=== PATIENT | female | born 1935 | race Caucasian/White ===

== ENCOUNTER 2018-04-21 15:25 | Inpatient (IN) | payer MEDICARE, BC ==
[2018-04-21] MEDS ORDERED: Sodium Chloride 0.9% 1,000 ML IV SCH (15:45)
--- NOTE | 2018-04-21 16:28 | EDM.PDOC ---
ED HPI GENERAL MEDICAL PROBLEM - General Chief Complaint: Cardiovascular Problem Stated Complaint: RAPID HEART BEAT Time Seen by Provider: 04/21/18 16:23 Source of Information: Reports: Patient History Limitations: Reports: No Limitations - History of Present Illness INITIAL COMMENTS - FREE TEXT/NARRATIVE: pt arrived with a history of frequent episodes of rapid rhythm. She has a history of svt. She has had some of this for several days but today has been much worse. Onset: Gradual, Other ( She has had problems for several days. ) Duration: Hour(s): Location: Reports: Chest, Other (Pt is having some rapid rhythms and during that time she is feeling dizzy and like she could pass out. ) Associated Symptoms: Reports: Other ( dizziness. ) - Related Data Allergies Allergy/AdvReac Type Severity Reaction Status Date / Time citalopram [From Celexa] Allergy Cannot Verified 04/21/18 15:37 Remember simvastatin Allergy Cannot Verified 04/21/18 15:37 Remember Home Meds: Home Meds Calcium Carbonate/Vitamin D2 [Oyster Shell Calcium-Vit D Tab] 200 - 500 mg PO DAILY 12/09/15 [History] Metoprolol Succinate [Toprol XL] 25 mg PO BID 12/09/15 [History] Alendronate Sodium [Fosamax] 70 mg PO WEEKLY 12/07/17 [History] Anastrozole [Arimidex] 1 mg PO ASDIRECTED 12/07/17 [History] Aspirin 81 mg PO DAILY 12/07/17 [History] Simvastatin 5 mg PO BEDTIME 12/07/17 [History] Past Medical History HEENT History: Reports: Cataract, Hard of Hearing, Impaired Vision Cardiovascular History: Reports: Arrhythmia, High Cholesterol, Hypertension Other Cardiovascular History: MV prolapse Respiratory History: Reports: Asthma Gastrointestinal History: Reports: None Genitourinary History: Reports: UTI, Recurrent 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: Musculoskeletal History: Reports: Back Pain, Chronic, Osteoarthritis, Other ( See Below) Other Musculoskeletal History: 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) Psychiatric History: Reports: Anxiety Endocrine/Metabolic History: Reports: Osteopenia, Osteoporosis Hematologic History: Reports: Anemia, Blood Transfusion(s) Oncologic (Cancer) History: Reports: Breast - Infectious Disease History Infectious Disease History: Reports: Chicken Pox, Measles - Past Surgical History Head Surgeries/Procedures: Reports: None HEENT Surgical History: Reports: Cataract Surgery Cardiovascular Surgical History: Reports: None Respiratory Surgical History: Reports: None GI Surgical History: Reports: Appendectomy, Colonoscopy, EGD Female Surgical History: Reports: Mastectomy Other Female Surgeries/Procedures: left side mastectomy Endocrine Surgical History: Reports: None Musculoskeletal Surgical History: Reports: None Oncologic Surgical History: Reports: Biopsy of Breast, Mastectomy, Other (See Below) Other Oncologic Surgeries/Procedures: L mastectomy (~2016) Dermatological Surgical History: Reports: None Social & Family History - Tobacco Use Smoking Status *Q: Never Smoker Second Hand Smoke Exposure: No - Caffeine Use Caffeine Use: Reports: None - Recreational Drug Use Recreational Drug Use: No ED ROS GENERAL - Review of Systems Review Of Systems: See Below Constitutional: Reports: Other ( dizziness. ) HEENT: Reports: No Symptoms Respiratory: Reports: No Symptoms Cardiovascular: Reports: Palpitations, Other ( pt is having runs of very rapuid rhythm. ) GI/Abdominal: Reports: No Symptoms : Reports: No Symptoms Musculoskeletal: Reports: No Symptoms Skin: Reports: No Symptoms ED EXAM, GENERAL - Physical Exam Exam: See Below Free Text/Narrative:: Pt is having episodes of very rapid rhythm up to 1780. She has aregular rapid rhythm in PAT Exam Limited By: No Limitations General Appearance: Alert, Anxious, Other ( She is having episodeds of rapid rhythm. ) Ears: Normal TMs Nose: Normal Inspection Throat/Mouth: Normal Inspection Head: Atraumatic Neck: Normal Inspection Respiratory/Chest: No Respiratory Distress Cardiovascular: Other ( episode of rapid rhytm up to 170. his is a at. ) GI/Abdominal: Soft, Non-Tender Rectal (Female) Exam: Deferred Back Exam: Normal Inspection Extremities: Normal Inspection Neurological: Alert, Oriented, Normal Cognition Psychiatric: Anxious Course - Vital Signs Last Recorded V/S: Last Vital Signs Temp 36.1 C 04/21/18 15:38 Pulse 150 H 04/21/18 17:36 Resp 14 04/21/18 17:36 BP 146/91 H 04/21/18 17:36 Pulse Ox 99 04/21/18 17:36 - Orders/Labs/Meds Orders: Active Orders 24 hr Category Date Time Status EKG Documentation Completion [RC] ASDIRECTED Care 04/21/18 15:38 Active Sodium Chloride 0.9% [Normal Saline] 1,000 ml Med 04/21/18 15:45 Active IV ASDIRECTED EKG 12 Lead [EK] Routine Ther 04/21/18 15:38 Ordered Medication Orders Sodium Chloride (Normal Saline) 1,000 mls @ 500 mls/hr IV ASDIRECTED CAROL Last Admin: 04/21/18 15:53 Dose: 500 mls/hr Labs: Laboratory Tests 04/21/18 04/21/18 04/21/18 Range/Units 15:38 15:51 15:51 WBC 8.0 (4.5-11.0) K/uL RBC 4.80 (3.30-5.50) M/uL Hgb 15.1 H (12.0-15.0) g/dL Hct 44.0 (36.0-48.0) % MCV 92 (80-98) fL MCH 32 H (27-31) pg MCHC 34 (32-36) % Plt Count 253 (150-400) K/uL Neut % (Auto) 66 (36-66) % Lymph % (Auto) 19 L (24-44) % [place] % (Auto) 12 H (2-6) % Eos % (Auto) 2 (2-4) % Baso % (Auto) 0 (0-1) % Sodium 143 (140-148) mmol/L Potassium 3.9 (3.6-5.2) mmol/L Chloride 105 (100-108) mmol/L Carbon Dioxide 28 (21-32) mmol/L Anion Gap 9.9 (5.0-14.0) mmol/L BUN 14 (7-18) mg/dL Creatinine 0.9 (0.6-1.0) mg/dL Est Cr Clr Drug Dosing 41.62 mL/min Estimated GFR (MDRD) 60 (>60) Glucose 99 (74-106) mg/dL Calcium 9.2 (8.5-10.1) mg/dL Magnesium 2.0 (1.8-2.4) mg/dL Total Bilirubin 0.3 (0.2-1.0) mg/dL AST 17 (15-37) U/L ALT 21 (12-78) U/L Alkaline Phosphatase 58 (46-116) U/L Troponin I < 0.017 (0.000-0.056) ng/mL Total Protein 7.1 (6.4-8.2) g/dL Albumin 3.6 (3.4-5.0) g/dL Globulin 3.5 (2.3-3.5) g/dL Albumin/Globulin Ratio 1.0 L (1.2-2.2) TSH, Ultra Sensitive (0.358-3.740) uIU/mL Urine Color Urine Appearance Urine pH (4.5-8.0) Ur Specific [place] (1.008-1.030) Urine Protein (NEGATIVE) mg/dL Urine Glucose (UA) (NEGATIVE) mg/dL Urine Ketones (NEGATIVE) mg/dL Urine Occult Blood (NEGATIVE) Urine Nitrite (NEGATIVE) Urine Bilirubin (NEGATIVE) Urine Urobilinogen (NORMAL) mg/dL Ur Leukocyte Esterase (NEGATIVE) Urine RBC (0-5) Urine WBC (0-5) Ur Epithelial Cells Amorphous Sediment Urine Bacteria Urine Mucus 04/21/18 04/21/18 Range/Units 16:30 16:33 WBC (4.5-11.0) K/uL RBC (3.30-5.50) M/uL Hgb (12.0-15.0) g/dL Hct (36.0-48.0) % MCV (80-98) fL MCH (27-31) pg MCHC (32-36) % Plt Count (150-400) K/uL Neut % (Auto) (36-66) % Lymph % (Auto) (24-44) % [place] % (Auto) (2-6) % Eos % (Auto) (2-4) % Baso % (Auto) (0-1) % Sodium (140-148) mmol/L Potassium (3.6-5.2) mmol/L Chloride (100-108) mmol/L Carbon Dioxide (21-32) mmol/L Anion Gap (5.0-14.0) mmol/L BUN (7-18) mg/dL Creatinine (0.6-1.0) mg/dL Est Cr Clr Drug Dosing mL/min Estimated GFR (MDRD) (>60) Glucose (74-106) mg/dL Calcium (8.5-10.1) mg/dL Magnesium (1.8-2.4) mg/dL Total Bilirubin (0.2-1.0) mg/dL AST (15-37) U/L ALT (12-78) U/L Alkaline Phosphatase (46-116) U/L Troponin I (0.000-0.056) ng/mL Total Protein (6.4-8.2) g/dL Albumin (3.4-5.0) g/dL Globulin (2.3-3.5) g/dL Albumin/Globulin Ratio (1.2-2.2) TSH, Ultra Sensitive 2.310 (0.358-3.740) uIU/mL Urine Color Yellow Urine Appearance Clear Urine pH 5.0 (4.5-8.0) Ur Specific [place] 1.020 (1.008-1.030) Urine Protein Negative (NEGATIVE) mg/dL Urine Glucose (UA) Normal (NEGATIVE) mg/dL Urine Ketones Negative (NEGATIVE) mg/dL Urine Occult Blood Negative (NEGATIVE) Urine Nitrite Negative (NEGATIVE) Urine Bilirubin Negative (NEGATIVE) Urine Urobilinogen Normal (NORMAL) mg/dL Ur Leukocyte Esterase Moderate (NEGATIVE) Urine RBC Not seen (0-5) Urine WBC 5-10 H (0-5) Ur Epithelial Cells Rare Amorphous Sediment Not seen Urine Bacteria Many Urine Mucus Not seen Meds: Medications Generic Name Dose Route Start Last Admin Trade Name Freq PRN Reason Stop Dose Admin Sodium Chloride 1,000 mls @ 500 mls/hr 04/21/18 15:45 04/21/18 15:53 Normal Saline IV 500 mls/hr ASDIRECTED CAROL Administration - Re-Assessments/Exams Free Text/Narrative Re-Assessment/Exam: 04/21/18 17:59 pt has normal electrolytes and cardiac enzymes Departure - Departure Time of Disposition: 18:00 Disposition: Admitted As Inpatient 66 Condition: Fair Clinical Impression: PAT (paroxysmal atrial tachycardia) - My Orders Last 24 Hours: My Active Orders 04/21/18 15:38 EKG Documentation Completion [RC] ASDIRECTED EKG 12 Lead [EK] Routine 04/21/18 15:45 Sodium Chloride 0.9% [Normal Saline] 1,000 ml IV ASDIRECTED - Assessment/Plan Last 24 Hours: My Active Orders 04/21/18 15:38 EKG Documentation Completion [RC] ASDIRECTED EKG 12 Lead [EK] Routine 04/21/18 15:45 Sodium Chloride 0.9% [Normal Saline] 1,000 ml IV ASDIRECTED
--- NOTE | 2018-04-21 16:29 | CRLCR ---
Clinical INDICATION: Rapid heart rhythm. FINDINGS: When allowing for AP technique, the heart is likely normal in size. The lungs are clear. The pulmonary vasculature and pleural surfaces are unremarkable. The bony thorax appears intact. IMPRESSION: No acute process identified. Dictated by Brandon Lake MD @ Apr 21 2018 4:27PM Signed by Dr. Brandon Lake @ Apr 21 2018 4:28PM
--- NOTE | 2018-04-21 18:02 | PCM.HP ---
H&P History of Present Illness - General Date of Service: 04/21/18 Admit Problem/Dx: Admission Diagnosis/Problem Admission Diagnosis/Problem Tachycardia Source of Information: Patient, Family, Old Records, Provider, RN Notes Reviewed History Limitations: Reports: No Limitations - History of Present Illness Initial Comments - Free Text/Narative: Ms. 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 She was first diagnosed with this in 2014, converted to sinus rhythm with Adenocard. She was seen and evaluated for an EP consult, she was treated with metoprolol 25 mg twice daily. That resulted in good control of the tachycardia over the past few years. Over the past few months she is noted recurrent episodes of rapid heart rate. Recently was seen and evaluated by Dr. Medrano, for cardiology consult. He was reluctant to increase the dose of metoprolol because of her sinus bradycardia with rate of 50. He recommended that if she have recurrent and increasing rhythm problems that ablation procedure be considered. Over the past week she has noted increased frequency of the episodes of atrial tachycardia and now over the past few days it has been very frequent. While in the emergency department it appears that she is been in the tachycardia is much as she is been out of it. She reports symptoms of lightheadedness and weakness but denies chest pain or significant shortness of breath. - Related Data Allergies/Adverse Reactions: Allergies Allergy/AdvReac Type Severity Reaction Status Date / Time citalopram [From Celexa] Allergy Cannot Verified 04/21/18 15:37 Remember simvastatin Allergy Cannot Verified 04/21/18 15:37 Remember Home Medications: Home Meds Calcium Carbonate/Vitamin D2 [Oyster Shell Calcium-Vit D Tab] 200 - 500 mg PO DAILY 12/09/15 [History] Metoprolol Succinate [Toprol XL] 25 mg PO BID 12/09/15 [History] Alendronate Sodium [Fosamax] 70 mg PO WEEKLY 12/07/17 [History] Anastrozole [Arimidex] 1 mg PO ASDIRECTED 12/07/17 [History] Aspirin 81 mg PO DAILY 12/07/17 [History] Simvastatin 5 mg PO BEDTIME 12/07/17 [History] Past Medical History HEENT History: Reports: Cataract, Hard of Hearing, Impaired Vision Cardiovascular History: Reports: Arrhythmia, High Cholesterol, Hypertension Other Cardiovascular History: MV prolapse Respiratory History: Reports: Asthma Gastrointestinal History: Reports: None Genitourinary History: Reports: UTI, Recurrent 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: Musculoskeletal History: Reports: Back Pain, Chronic, Osteoarthritis, Other ( See Below) Other Musculoskeletal History: 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) Psychiatric History: Reports: Anxiety Endocrine/Metabolic History: Reports: Osteopenia, Osteoporosis Hematologic History: Reports: Anemia, Blood Transfusion(s) Oncologic (Cancer) History: Reports: Breast - Infectious Disease History Infectious Disease History: Reports: Chicken Pox, Measles - Past Surgical History Head Surgeries/Procedures: Reports: None HEENT Surgical History: Reports: Cataract Surgery Cardiovascular Surgical History: Reports: None Respiratory Surgical History: Reports: None GI Surgical History: Reports: Appendectomy, Colonoscopy, EGD Female Surgical History: Reports: Mastectomy Other Female Surgeries/Procedures: left side mastectomy Endocrine Surgical History: Reports: None Musculoskeletal Surgical History: Reports: None Oncologic Surgical History: Reports: Biopsy of Breast, Mastectomy, Other (See Below) Other Oncologic Surgeries/Procedures: L mastectomy (~2015) Dermatological Surgical History: Reports: None Social & Family History - Tobacco Use Smoking Status *Q: Never Smoker Second Hand Smoke Exposure: No - Caffeine Use Caffeine Use: Reports: None - Recreational Drug Use Recreational Drug Use: No H&P Review of Systems - Review of Systems: Review Of Systems: See Below General: Reports: Weakness. Denies: Fever, Chills HEENT: Reports: No Symptoms Pulmonary: Reports: No Symptoms Cardiovascular: Reports: Palpitations, Lightheadedness. Denies: Chest Pain, Dyspnea on Exertion, Orthopnea, PND, Edema, Syncope Gastrointestinal: Reports: No Symptoms Genitourinary: Reports: No Symptoms Musculoskeletal: Reports: No Symptoms Skin: Reports: No Symptoms Psychiatric: Reports: No Symptoms Neurological: Reports: No Symptoms Hematologic/Lymphatic: Reports: No Symptoms Immunologic: Reports: No Symptoms Exam - Exam Exam: See Below - Vital Signs Vital Signs: Last Vital Signs Temp 97.0 F 04/21/18 15:38 Pulse 150 H 04/21/18 17:36 Resp 14 04/21/18 17:36 BP 146/91 H 04/21/18 17:36 Pulse Ox 99 04/21/18 17:36 Weight: 145 lb - Exam Quality Assessment: DVT Prophylaxis General: Alert, Oriented, Cooperative, Moderate Distress HEENT: Conjunctiva Clear, Hearing Intact, Mucosa Moist & [place], Normal Nasal Septum, Posterior Pharynx Clear, Pupils Equal Neck: Supple, Trachea Midline, +2 Carotid Pulse wo Bruit Lungs: Clear to Auscultation, Normal Respiratory Effort Cardiovascular: Regular Rhythm, Normal S1, Normal S2, Tachycardia. No: Systolic Murmur, Diastolic Murmur GI/Abdominal Exam: Soft, Non-Tender, No Organomegaly, No Distention Back Exam: Normal Inspection, Full Range of Motion Extremities: Non-Tender, No Pedal Edema Skin: Warm, Dry, Intact Neurological: Cranial Nerves Intact, Strength Equal Bilateral, Normal Speech, Normal Tone, Sensation Intact. No: Focal Deficit Neuro Extensive - Mental Status: Alert, Oriented x3, Normal Mood/Affect, Normal Cognition, Memory Intact - Patient Data Lab Results Last 24 hrs: Laboratory Results - last 24 hr 04/21/18 04/21/18 04/21/18 Range/Units 15:38 15:51 15:51 WBC 8.0 (4.5-11.0) K/uL RBC 4.80 (3.30-5.50) M/uL Hgb 15.1 H (12.0-15.0) g/dL Hct 44.0 (36.0-48.0) % MCV 92 (80-98) fL MCH 32 H (27-31) pg MCHC 34 (32-36) % Plt Count 253 (150-400) K/uL Neut % (Auto) 66 (36-66) % Lymph % (Auto) 19 L (24-44) % [place] % (Auto) 12 H (2-6) % Eos % (Auto) 2 (2-4) % Baso % (Auto) 0 (0-1) % Sodium 143 (140-148) mmol/L Potassium 3.9 (3.6-5.2) mmol/L Chloride 105 (100-108) mmol/L Carbon Dioxide 28 (21-32) mmol/L Anion Gap 9.9 (5.0-14.0) mmol/L BUN 14 (7-18) mg/dL Creatinine 0.9 (0.6-1.0) mg/dL Est Cr Clr Drug Dosing 41.62 mL/min Estimated GFR (MDRD) 60 (>60) Glucose 99 (74-106) mg/dL Calcium 9.2 (8.5-10.1) mg/dL Magnesium 2.0 (1.8-2.4) mg/dL Total Bilirubin 0.3 (0.2-1.0) mg/dL AST 17 (15-37) U/L ALT 21 (12-78) U/L Alkaline Phosphatase 58 (46-116) U/L Troponin I < 0.017 (0.000-0.056) ng/mL Total Protein 7.1 (6.4-8.2) g/dL Albumin 3.6 (3.4-5.0) g/dL Globulin 3.5 (2.3-3.5) g/dL Albumin/Globulin Ratio 1.0 L (1.2-2.2) TSH, Ultra Sensitive (0.358-3.740) uIU/mL Urine Color Urine Appearance Urine pH (4.5-8.0) Ur Specific [place] (1.008-1.030) Urine Protein (NEGATIVE) mg/dL Urine Glucose (UA) (NEGATIVE) mg/dL Urine Ketones (NEGATIVE) mg/dL Urine Occult Blood (NEGATIVE) Urine Nitrite (NEGATIVE) Urine Bilirubin (NEGATIVE) Urine Urobilinogen (NORMAL) mg/dL Ur Leukocyte Esterase (NEGATIVE) Urine RBC (0-5) Urine WBC (0-5) Ur Epithelial Cells Amorphous Sediment Urine Bacteria Urine Mucus 04/21/18 04/21/18 Range/Units 16:30 16:33 WBC (4.5-11.0) K/uL RBC (3.30-5.50) M/uL Hgb (12.0-15.0) g/dL Hct (36.0-48.0) % MCV (80-98) fL MCH (27-31) pg MCHC (32-36) % Plt Count (150-400) K/uL Neut % (Auto) (36-66) % Lymph % (Auto) (24-44) % [place] % (Auto) (2-6) % Eos % (Auto) (2-4) % Baso % (Auto) (0-1) % Sodium (140-148) mmol/L Potassium (3.6-5.2) mmol/L Chloride (100-108) mmol/L Carbon Dioxide (21-32) mmol/L Anion Gap (5.0-14.0) mmol/L BUN (7-18) mg/dL Creatinine (0.6-1.0) mg/dL Est Cr Clr Drug Dosing mL/min Estimated GFR (MDRD) (>60) Glucose (74-106) mg/dL Calcium (8.5-10.1) mg/dL Magnesium (1.8-2.4) mg/dL Total Bilirubin (0.2-1.0) mg/dL AST (15-37) U/L ALT (12-78) U/L Alkaline Phosphatase (46-116) U/L Troponin I (0.000-0.056) ng/mL Total Protein (6.4-8.2) g/dL Albumin (3.4-5.0) g/dL Globulin (2.3-3.5) g/dL Albumin/Globulin Ratio (1.2-2.2) TSH, Ultra Sensitive 2.310 (0.358-3.740) uIU/mL Urine Color Yellow Urine Appearance Clear Urine pH 5.0 (4.5-8.0) Ur Specific [place] 1.020 (1.008-1.030) Urine Protein Negative (NEGATIVE) mg/dL Urine Glucose (UA) Normal (NEGATIVE) mg/dL Urine Ketones Negative (NEGATIVE) mg/dL Urine Occult Blood Negative (NEGATIVE) Urine Nitrite Negative (NEGATIVE) Urine Bilirubin Negative (NEGATIVE) Urine Urobilinogen Normal (NORMAL) mg/dL Ur Leukocyte Esterase Moderate (NEGATIVE) Urine RBC Not seen (0-5) Urine WBC 5-10 H (0-5) Ur Epithelial Cells Rare Amorphous Sediment Not seen Urine Bacteria Many Urine Mucus Not seen Result Diagrams: 04/21/18 15:38 04/21/18 15:51 *Q Meaningful Use (ADM) - VTE Risk Assess *Q Each Risk Factor Represents 1 Point: None Total Score 1 Point Risk Factors: 0 Each Risk Factor Represents 2 Points: None Total Score 2 Point Risk Factors: 0 Each Risk Factor Represents 3 Points: Age 75 Years or Greater Total Score 3 Point Risk Factors: 3 Each Risk Factor Represents 5 Points: None Total Score 5 Point Risk Factors: 0 Venous Thromboembolism Risk Factor Score *Q: 3 Problem List Initiated/Reviewed/Updated: Yes Orders Last 24hrs: Active Orders 24 hr Category Date Time Status Patient Status Manage Transfer [TRANSFER] Routine ADT 04/21/18 17:45 Active EKG Documentation Completion [RC] ASDIRECTED Care 04/21/18 15:38 Active Sodium Chloride 0.9% [Normal Saline] 1,000 ml Med 04/21/18 15:45 Active IV ASDIRECTED Resuscitation Status Routine Resus Stat 04/21/18 17:47 Ordered EKG 12 Lead [EK] Routine Ther 04/21/18 15:38 Ordered Medication Orders Sodium Chloride (Normal Saline) 1,000 mls @ 500 mls/hr IV ASDIRECTED CAROL Last Admin: 04/21/18 15:53 Dose: 500 mls/hr Assessment/Plan Comment:: ASSESSMENT AND PLAN 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 On recent evaluation for cardiology there was reluctance to consider increased dose of beta syd because of her sinus bradycardia. Discussed with cardiology on-call from [facility], they've recommended trial of IV diltiazem and then transitioned to oral therapy. Rapid follow-up with EP to consider ablation procedure. -Hold metoprolol -Diltiazem 20 mg IV now -Continuous infusion of diltiazem 5 mg per hour -Transitioned to oral diltiazem in a.m. if it appears the rhythm is well controlled -Consider inpatient versus outpatient EP evaluation. HISTORY OF BREAST CANCER-no history of recurrence -Continue outpatient medical management MAINTENANCE ISSUES -DVT prophylaxis; Lovenox 40 mg subcutaneous daily -GI prophylaxis; not indicated -[place]es catheter; not indicated -Nutrition; regular diet -Nicotine dependence; not required CODE STATUS-FULL CODE ADMISSION STATUS-patient will be admitted to inpatient status, expect at least a 2 night hospital stay for evaluation and management of problems as outlined above. At the time of this admission I do not reasonably expected evaluation and management of this problem will require more than a 96 hour hospital stay. DISPOSITION-anticipate discharge to home after the hospital stay. PRIMARY CARE PROVIDER-Dr. Hines
[2018-04-21] MEDS ORDERED: Diltiazem 25 MG/5 ML SDV IVPUSH ONE (18:09)
[2018-04-21] MEDS ORDERED: Acetaminophen 325 MG Tab PO PRN (18:09)
[2018-04-21] MEDS ORDERED: Sodium Chloride 0.9% 10 ML Syringe FLUSH PRN (18:09)
[2018-04-21] MEDS ORDERED: Diltiazem 100 MG in Sodium Chloride 0.9% 100 ML IV SCH (18:09)
[2018-04-21] MEDS ORDERED: Ondansetron 4 MG/2 ML SDV IV PRN (18:09)
[2018-04-21] MEDS: Sodium Chloride 0.9% 1,000 ML IV SCH (19:00)
[2018-04-21] MEDS: Enoxaparin 40 MG/0.4 ML Syringe SUBCUT SCH (21:17)
[2018-04-21] MEDS: Aspirin 81 MG Tab.EC PO SCH (21:18)
[2018-04-21] MEDS: Anastrozole 1 MG Tab PO SCH (21:18)
[2018-04-22] MEDS: Sodium Chloride 0.9% 1,000 ML IV SCH (01:24)
[2018-04-22] MEDS ORDERED: Magnesium Hydroxide 400 MG/5 ML Susp 30 ML Cup PO PRN (08:49)
[2018-04-22] MEDS ORDERED: Aspirin 81 MG Tab.Chew PO SCH (09:00)
[2018-04-22] MEDS: Diltiazem IR 30 MG Tab PO SCH ×3 (09:12→21:17)
--- NOTE | 2018-04-22 09:19 | PCM.PN ---
- General Info Date of Service: 04/22/18 Subjective Update: There were no acute events overnight. With the use of diltiazem she has returned to a sinus rhythm. There have been no further episodes of SVT. She feels weak but otherwise feels a fair amount better than yesterday. Blood pressure has been on the low side of normal. There is no report of chest pain. Appetite was good this morning. She has not had any fevers. Functional Status: Reports: Pain Controlled, Tolerating Diet - Review of Systems General: Reports: Weakness Cardiovascular: Denies: Chest Pain - Patient Data Vitals - Most Recent: Last Vital Signs Temp 35.6 C 04/22/18 07:42 Pulse 50 L 04/22/18 07:42 Resp 16 04/22/18 07:42 BP 115/50 L 04/22/18 07:42 Pulse Ox 98 04/22/18 07:42 Weight - Most Recent: 65.771 kg I&O - Last 24 Hours: Intake & Output 04/21/18 04/22/18 04/22/18 22:59 06:59 14:59 Intake Total 840 240 Output Total 625 300 250 Balance 215 -300 -10 Lab Results Last 24 Hours: Laboratory Results - last 24 hr 04/21/18 04/21/18 04/21/18 Range/Units 15:38 15:51 15:51 WBC 8.0 (4.5-11.0) K/uL RBC 4.80 (3.30-5.50) M/uL Hgb 15.1 H (12.0-15.0) g/dL Hct 44.0 (36.0-48.0) % MCV 92 (80-98) fL MCH 32 H (27-31) pg MCHC 34 (32-36) % Plt Count 253 (150-400) K/uL Neut % (Auto) 66 (36-66) % Lymph % (Auto) 19 L (24-44) % [place] % (Auto) 12 H (2-6) % Eos % (Auto) 2 (2-4) % Baso % (Auto) 0 (0-1) % Sodium 143 (140-148) mmol/L Potassium 3.9 (3.6-5.2) mmol/L Chloride 105 (100-108) mmol/L Carbon Dioxide 28 (21-32) mmol/L Anion Gap 9.9 (5.0-14.0) mmol/L BUN 14 (7-18) mg/dL Creatinine 0.9 (0.6-1.0) mg/dL Est Cr Clr Drug Dosing 41.62 mL/min Estimated GFR (MDRD) 60 (>60) Glucose 99 (74-106) mg/dL Calcium 9.2 (8.5-10.1) mg/dL Magnesium 2.0 (1.8-2.4) mg/dL Total Bilirubin 0.3 (0.2-1.0) mg/dL AST 17 (15-37) U/L ALT 21 (12-78) U/L Alkaline Phosphatase 58 (46-116) U/L Troponin I < 0.017 (0.000-0.056) ng/mL Total Protein 7.1 (6.4-8.2) g/dL Albumin 3.6 (3.4-5.0) g/dL Globulin 3.5 (2.3-3.5) g/dL Albumin/Globulin Ratio 1.0 L (1.2-2.2) TSH, Ultra Sensitive (0.358-3.740) uIU/mL Urine Color Urine Appearance Urine pH (4.5-8.0) Ur Specific [place] (1.008-1.030) Urine Protein (NEGATIVE) mg/dL Urine Glucose (UA) (NEGATIVE) mg/dL Urine Ketones (NEGATIVE) mg/dL Urine Occult Blood (NEGATIVE) Urine Nitrite (NEGATIVE) Urine Bilirubin (NEGATIVE) Urine Urobilinogen (NORMAL) mg/dL Ur Leukocyte Esterase (NEGATIVE) Urine RBC (0-5) Urine WBC (0-5) Ur Epithelial Cells Amorphous Sediment Urine Bacteria Urine Mucus 04/21/18 04/21/18 04/22/18 Range/Units 16:30 16:33 04:37 WBC 6.4 (4.5-11.0) K/uL RBC 3.92 (3.30-5.50) M/uL Hgb 12.2 D (12.0-15.0) g/dL Hct 36.6 (36.0-48.0) % MCV 93 (80-98) fL MCH 31 (27-31) pg MCHC 33 (32-36) % Plt Count 199 (150-400) K/uL Neut % (Auto) 67 H (36-66) % Lymph % (Auto) 21 L (24-44) % [place] % (Auto) 11 H (2-6) % Eos % (Auto) 1 L (2-4) % Baso % (Auto) 0 (0-1) % Sodium (140-148) mmol/L Potassium (3.6-5.2) mmol/L Chloride (100-108) mmol/L Carbon Dioxide (21-32) mmol/L Anion Gap (5.0-14.0) mmol/L BUN (7-18) mg/dL Creatinine (0.6-1.0) mg/dL Est Cr Clr Drug Dosing mL/min Estimated GFR (MDRD) (>60) Glucose (74-106) mg/dL Calcium (8.5-10.1) mg/dL Magnesium (1.8-2.4) mg/dL Total Bilirubin (0.2-1.0) mg/dL AST (15-37) U/L ALT (12-78) U/L Alkaline Phosphatase (46-116) U/L Troponin I (0.000-0.056) ng/mL Total Protein (6.4-8.2) g/dL Albumin (3.4-5.0) g/dL Globulin (2.3-3.5) g/dL Albumin/Globulin Ratio (1.2-2.2) TSH, Ultra Sensitive 2.310 (0.358-3.740) uIU/mL Urine Color Yellow Urine Appearance Clear Urine pH 5.0 (4.5-8.0) Ur Specific [place] 1.020 (1.008-1.030) Urine Protein Negative (NEGATIVE) mg/dL Urine Glucose (UA) Normal (NEGATIVE) mg/dL Urine Ketones Negative (NEGATIVE) mg/dL Urine Occult Blood Negative (NEGATIVE) Urine Nitrite Negative (NEGATIVE) Urine Bilirubin Negative (NEGATIVE) Urine Urobilinogen Normal (NORMAL) mg/dL Ur Leukocyte Esterase Moderate (NEGATIVE) Urine RBC Not seen (0-5) Urine WBC 5-10 H (0-5) Ur Epithelial Cells Rare Amorphous Sediment Not seen Urine Bacteria Many Urine Mucus Not seen 04/22/18 Range/Units 04:37 WBC (4.5-11.0) K/uL RBC (3.30-5.50) M/uL Hgb (12.0-15.0) g/dL Hct (36.0-48.0) % MCV (80-98) fL MCH (27-31) pg MCHC (32-36) % Plt Count (150-400) K/uL Neut % (Auto) (36-66) % Lymph % (Auto) (24-44) % [place] % (Auto) (2-6) % Eos % (Auto) (2-4) % Baso % (Auto) (0-1) % Sodium 146 (140-148) mmol/L Potassium 4.0 (3.6-5.2) mmol/L Chloride 111 H (100-108) mmol/L Carbon Dioxide 27 (21-32) mmol/L Anion Gap 12.0 (5.0-14.0) mmol/L BUN 12 (7-18) mg/dL Creatinine 0.7 (0.6-1.0) mg/dL Est Cr Clr Drug Dosing 53.51 mL/min Estimated GFR (MDRD) > 60 (>60) Glucose 95 (74-106) mg/dL Calcium 8.0 L (8.5-10.1) mg/dL Magnesium 1.7 L (1.8-2.4) mg/dL Total Bilirubin (0.2-1.0) mg/dL AST (15-37) U/L ALT (12-78) U/L Alkaline Phosphatase (46-116) U/L Troponin I (0.000-0.056) ng/mL Total Protein (6.4-8.2) g/dL Albumin (3.4-5.0) g/dL Globulin (2.3-3.5) g/dL Albumin/Globulin Ratio (1.2-2.2) TSH, Ultra Sensitive (0.358-3.740) uIU/mL Urine Color Urine Appearance Urine pH (4.5-8.0) Ur Specific [place] (1.008-1.030) Urine Protein (NEGATIVE) mg/dL Urine Glucose (UA) (NEGATIVE) mg/dL Urine Ketones (NEGATIVE) mg/dL Urine Occult Blood (NEGATIVE) Urine Nitrite (NEGATIVE) Urine Bilirubin (NEGATIVE) Urine Urobilinogen (NORMAL) mg/dL Ur Leukocyte Esterase (NEGATIVE) Urine RBC (0-5) Urine WBC (0-5) Ur Epithelial Cells Amorphous Sediment Urine Bacteria Urine Mucus Med Orders - Current: Current Medications Acetaminophen (Tylenol) 650 mg PO Q4H PRN PRN Reason: Pain (Mild 1-3)/fever Anastrozole (Arimidex) 1 mg PO BEDTIME [facility] Last Admin: 04/21/18 21:18 Dose: 1 mg Aspirin (Halfprin) 81 mg PO BEDTIME [facility] Last Admin: 04/21/18 21:18 Dose: 81 mg Diltiazem HCl (Cardizem) 15 mg PO Q6H [facility] Last Admin: 04/22/18 09:12 Dose: 15 mg Enoxaparin Sodium (Lovenox) 40 mg SUBCUT BEDTIME [facility] Last Admin: 04/21/18 21:17 Dose: 40 mg Sodium Chloride (Normal Saline) 1,000 mls @ 125 mls/hr IV ASDIRECTED [facility] Last Admin: 04/22/18 01:24 Dose: 125 mls/hr Magnesium Hydroxide (Milk Of Magnesia) 30 ml PO DAILY PRN PRN Reason: Constipation Ondansetron HCl (Zofran) 4 mg IV Q4H PRN PRN Reason: Nausea/Vomiting Senna/Docusate Sodium (Senna Plus) 1 tab PO BID PRN PRN Reason: Constipation Sodium Chloride (Saline Flush) 10 ml FLUSH ASDIRECTED PRN PRN Reason: Keep Vein Open Discontinued Medications Aspirin (Aspirin) 81 mg PO DAILY [facility] Diltiazem HCl (Diltiazem) 20 mg IVPUSH ONETIME ONE Stop: 04/21/18 18:10 Last Admin: 04/21/18 18:35 Dose: 20 mg Sodium Chloride (Normal Saline) 1,000 mls @ 500 mls/hr IV ASDIRECTED [facility] Last Admin: 04/21/18 15:53 Dose: 500 mls/hr Diltiazem HCl 100 mg/ Sodium (Chloride) 100 mls @ 5 mls/hr IV TITRATE [facility]; Protocol Last Titration: 04/22/18 04:12 Dose: 0 mg/hr, 0 mls/hr - Exam Quality Assessment: No: Supplemental Oxygen General: Alert, Oriented, Cooperative, No Acute Distress Lungs: Clear to Auscultation, Normal Respiratory Effort Cardiovascular: Regular Rate, Regular Rhythm GI/Abdominal Exam: Soft, No Distention Extremities: No Pedal Edema. 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 She has responded well to diltiazem. I'm planning to transition her to oral medications this morning. Low doses of diltiazem are needed because of borderline low blood pressures. -Hold metoprolol -Diltiazem 15 mg by mouth every 6 hours -Consider inpatient versus outpatient EP evaluation if there is recurrence HISTORY OF BREAST CANCER - no history of recurrence -Continue outpatient medical management MAINTENANCE ISSUES -DVT prophylaxis; Lovenox 40 mg subcutaneous daily -GI prophylaxis; not indicated -Coles catheter; not indicated -Nutrition; regular diet -Nicotine dependence; not required CODE STATUS-FULL CODE ADMISSION STATUS-patient will be admitted to inpatient status, expect at least a 2 night hospital stay for evaluation and management of problems as outlined above. At the time of this admission I do not reasonably expected evaluation and management of this problem will require more than a 96 hour hospital stay. DISPOSITION - anticipate discharge to home after the hospital stay. Lee Go M.D.
[2018-04-22] MEDS ORDERED: Diltiazem IR 30 MG Tab PO ONE (17:49)
[2018-04-22] MEDS: Anastrozole 1 MG Tab PO SCH (21:17)
[2018-04-22] MEDS: Aspirin 81 MG Tab.EC PO SCH (21:17)
[2018-04-22] MEDS: Enoxaparin 40 MG/0.4 ML Syringe SUBCUT SCH (21:17)
[2018-04-23] MEDS: Diltiazem IR 30 MG Tab PO SCH ×2 (04:32→10:08)
[2018-04-23] MEDS ORDERED: cefTRIAXone 1 GM in Sodium Chloride 0.9% 50 ML IV SCH (09:00)
[2018-04-23 10:59] VITALS: BP 137/56
[2018-04-23] MEDS ORDERED: Diltiazem 120 MG Cap.CD PO ONE (12:20)
--- NOTE | 2018-04-23 12:24 | PCM.DCSUM1 ---
Discharge Summary - Hospital Course Brief History: 82-year-old female with history of breast cancer and AV nette reentrant tachycardia who presented with multiple episodes of palpitations. She was found to be in AV ntete branch and tachycardia with rapid cycling into and out of the rhythm. She was started on diltiazem and admitted to the intensive care unit. Diagnosis: Stroke: No - Discharge Data Discharge Date: 04/23/18 Discharge Disposition: Home, Self-Care 01 Condition: Good - Discharge Diagnosis/Problem(s) (1) AVNRT (AV nette re-entry tachycardia) SNOMED Code(s): 336212085, [id number], [id number] ICD Code: I47.1 - SUPRAVENTRICULAR TACHYCARDIA Status: Acute Current Visit: No (2) HX: breast cancer SNOMED Code(s): 858172818 ICD Code: Z85.3 - PERSONAL HISTORY OF MALIGNANT NEOPLASM OF BREAST Status: Chronic Current Visit: No - Patient Summary/Data Hospital Course: Anita presented to the emergency room with weakness, lightheadedness and palpitations. The symptoms have been progressive over several months but much worse in the few days leading up to presentation. In the emergency room she was noted to have recurrent episodes of SVT with a presumed reentrant tachycardia. These would self terminate but came out fairly frequently. Cardiology was consulted from the emergency room and they recommended trying diltiazem since she had previously been on metoprolol and was having breakthrough episodes. There was no evidence for electrolyte abnormality at the time of presentation. Urinalysis had many bacteria but she did not have symptoms or fever. She was admitted to the intensive care unit and started on a diltiazem infusion. After initiation of the infusion her heart rate stabilized and remained stable in the 50-60 range for a rate. Symptomatically she felt much better by the morning after admission. This point we elected to transition her to oral medications. Initially I tried 15 mg of diltiazem every 6 hours but this was insufficient to keep her palpitations down though she did not have recurrent SVT. I increase the dose to 30 mg every 6 hours which she tolerated well and alleviated her symptoms. Since the increase she had not had any difficulties with palpitations or SVT. On the morning of discharge she was transitioned to a long-acting diltiazem. Her urine culture did grow a gram-negative eliza and large quantity though identification is still pending and infection may be contributing as well. She has been very stable with the diltiazem and I don't feel these need for an urgent electrophysiology referral. With her recurrent symptoms and progressive difficulties over the past month she would benefit from repeat evaluation by the tree and shrub worker and consideration for ablation of her AV nette reentrant tachycardia. She feels well at this time and feel safe going home. She did receive a prescription for long-acting diltiazem. She also received a prescription for cephalexin to treat her urinary tract infection. I did complete a referral to [facility] in [place] so she can be set up an appointment to see the tree and shrub worker. She has previously seen Dr. Oropeza and had also recently been seen by Dr. Medrano who did recommend ablation if she had recurrent episodes. Her heart rate has been in the 50-60 range for the most part and does increase to the 80s with activity. She is not dizzy or lightheaded with a heart rate in the 50s or 60s. - Patient Instructions Diet: Heart Healthy Diet Activity: As Tolerated Showering/Bathing: May Shower Notify Provider of: Fever, Increased Pain Other/Special Instructions: 1. You were in the hospital for management of recurrent AV nette reentrant tachycardia. Your heart rate has improved and the abnormal rhythm appears to have resolved with the use of diltiazem. You should start taking diltiazem 120 mg once daily in the morning with your first dose due tomorrow. This is an extended release capsule. This will take the place of your metoprolol which you should stop taking. 2. During the hospital stay we noticed that your urine sample I suggested infection.I have sent a prescription for cephalexin (Keflex) 500 mg which you should take twice daily starting tomorrow morning. I will contact you if the urine culture grows a resistant organism and we need to change antibiotics. 3. I have placed a referral to electrophysiology at [facility] in [place]. They will be contacting you with an appointment in the near future. 4. Follow up with Dr. Hines in 1 to 2 weeks. 5. Seek medical attention if you have fever greater than 101 or if you experience symptoms of palpitations or chest tightness that raise concern for recurrence of the arrhythmia. - Discharge Plan *PRESCRIPTION DRUG MONITORING PROGRAM REVIEWED*: Not Applicable *COPY OF PRESCRIPTION DRUG MONITORING REPORT IN PATIENT KRISTY: Not Applicable Prescriptions/Med Rec: cephALEXin [Cephalexin] 500 mg PO BID #8 capsule dilTIAZem HCl [Diltiazem 24Hr Cd] 120 mg PO DAILY #30 cap.er.24h Home Medications: Home Meds Calcium Carbonate/Vitamin D2 [Oyster Shell Calcium-Vit D Tab] 200 - 500 mg PO DAILY 12/09/15 [History] Alendronate Sodium [Fosamax] 70 mg PO WEEKLY 12/07/17 [History] Anastrozole [Arimidex] 1 mg PO BEDTIME 12/07/17 [History] Aspirin 81 mg PO BEDTIME 12/07/17 [History] Simvastatin 5 mg PO BEDTIME 12/07/17 [History] cephALEXin [Cephalexin] 500 mg PO BID #8 capsule 04/23/18 [Rx] dilTIAZem HCl [Diltiazem 24Hr Cd] 120 mg PO DAILY #30 cap.er.24h 04/23/18 [Rx] Oxygen Therapy Mode: Room Air Patient Handouts: Diltiazem extended-release capsules or tablets, Cardiac Ablation Referrals: Boom Hines MD [Primary Care Provider] - (1-2 weeks - f/u hospital stay for AVNRT) - Discharge Summary/Plan Comment DC Time >30 min.: Yes (45 - setting up follow-up with electrophysiology) - Patient Data Vitals - Most Recent: Last Vital Signs Temp 36.9 C 04/23/18 10:57 Pulse 62 04/23/18 10:57 Resp 16 04/23/18 10:57 BP 137/56 L 04/23/18 10:57 Pulse Ox 100 04/23/18 10:57 Weight - Most Recent: 65.771 kg I&O - Last 24 hours: Intake & Output 04/22/18 04/23/18 04/23/18 22:59 06:59 14:59 Intake Total 240 600 410 Output Total 1200 1300 1000 Balance -960 -700 -590 Lab Results - Last 24 hrs: Laboratory Results - last 24 hr 04/22/18 04/23/18 Range/Units 13:04 05:55 Sodium 144 (140-148) mmol/L Potassium 4.7 (3.6-5.2) mmol/L Chloride 108 (100-108) mmol/L Carbon Dioxide 30 (21-32) mmol/L Anion Gap 5.9 (5.0-14.0) mmol/L BUN 7 (7-18) mg/dL Creatinine 0.7 (0.6-1.0) mg/dL Est Cr Clr Drug Dosing 53.51 mL/min Estimated GFR (MDRD) > 60 (>60) Glucose 111 H (74-106) mg/dL Calcium 8.7 (8.5-10.1) mg/dL Urine Color Yellow Urine Appearance Slightly cloudy Urine pH 5.0 (4.5-8.0) Ur Specific [place] 1.005 L (1.008-1.030) Urine Protein Negative (NEGATIVE) mg/dL Urine Glucose (UA) Normal (NEGATIVE) mg/dL Urine Ketones Negative (NEGATIVE) mg/dL Urine Occult Blood Negative (NEGATIVE) Urine Nitrite Negative (NEGATIVE) Urine Bilirubin Negative (NEGATIVE) Urine Urobilinogen Normal (NORMAL) mg/dL Ur Leukocyte Esterase Negative (NEGATIVE) Urine RBC Not seen (0-5) Urine WBC 0-5 (0-5) Ur Epithelial Cells Not seen Amorphous Sediment Not seen Urine Bacteria Many Urine Mucus Not seen LURDES Results - Last 24 hrs: Microbiology 04/22/18 10:26 Urine Culture - Preliminary Urine, Clean Catch Med Orders - Current: Current Medications Acetaminophen (Tylenol) 650 mg PO Q4H PRN PRN Reason: Pain (Mild 1-3)/fever Anastrozole (Arimidex) 1 mg PO BEDTIME [facility] Last Admin: 04/22/18 21:17 Dose: 1 mg Aspirin (Halfprin) 81 mg PO BEDTIME [facility] Last Admin: 04/22/18 21:17 Dose: 81 mg Enoxaparin Sodium (Lovenox) 40 mg SUBCUT BEDTIME [facility] Last Admin: 04/22/18 21:17 Dose: 40 mg Ceftriaxone Sodium 1 gm/ (Sodium Chloride) 50 mls @ 100 mls/hr IV Q24H [facility] Last Admin: 04/23/18 10:04 Dose: 100 mls/hr Magnesium Hydroxide (Milk Of Magnesia) 30 ml PO DAILY PRN PRN Reason: Constipation Last Admin: 04/22/18 09:46 Dose: 30 ml Ondansetron HCl (Zofran) 4 mg IV Q4H PRN PRN Reason: Nausea/Vomiting Senna/Docusate Sodium (Senna Plus) 1 tab PO BID PRN PRN Reason: Constipation Sodium Chloride (Saline Flush) 10 ml FLUSH ASDIRECTED PRN PRN Reason: Keep Vein Open Discontinued Medications Aspirin (Aspirin) 81 mg PO DAILY [facility] Diltiazem HCl (Diltiazem) 20 mg IVPUSH ONETIME ONE Stop: 04/21/18 18:10 Last Admin: 04/21/18 18:35 Dose: 20 mg Diltiazem HCl (Cardizem) 15 mg PO Q6H [facility] Last Admin: 04/22/18 16:10 Dose: 15 mg Diltiazem HCl (Cardizem) 15 mg PO ONETIME ONE Stop: 04/22/18 17:50 Last Admin: 04/22/18 18:12 Dose: 15 mg Diltiazem HCl (Cardizem) 30 mg PO Q6H [facility] Last Admin: 04/23/18 10:08 Dose: 30 mg Diltiazem HCl (Cardizem Cd) 120 mg PO ONETIME ONE Stop: 04/23/18 12:21 Sodium Chloride (Normal Saline) 1,000 mls @ 500 mls/hr IV ASDIRECTED [facility] Last Admin: 04/21/18 15:53 Dose: 500 mls/hr Diltiazem HCl 100 mg/ Sodium (Chloride) 100 mls @ 5 mls/hr IV TITRATE [facility]; Protocol Last Titration: 04/22/18 04:12 Dose: 0 mg/hr, 0 mls/hr Sodium Chloride (Normal Saline) 1,000 mls @ 125 mls/hr IV ASDIRECTED [facility] Last Admin: 04/22/18 01:24 Dose: 125 mls/hr - Exam Quality Assessment: Denies: Supplemental Oxygen General: Reports: Alert, Oriented, Cooperative, No Acute Distress Lungs: Reports: Normal Respiratory Effort Cardiovascular: Reports: Regular Rate, Regular Rhythm GI/Abdominal Exam: Soft, No Distention Extremities: No Pedal Edema Psy/Mental Status: Reports: Alert, Normal Affect
== END 2018-04-23 14:30 | disposition home or self-care (01) | DRG 309 ==
LOC: JP.ED 15:25 → JP.ICU 17:45 → JP.MS 04-22 10:30
PROVIDERS: ADMIT Hospitalist; ATTEND Internal Medicine
DX: I47.1 Supraventricular tachycardia (principal); N39.0 Urinary tract infection, site not specified; R53.1 Weakness; R42 Dizziness and giddiness; R00.0 Tachycardia, unspecified; I10 Essential (primary) hypertension; B96.20 Unspecified Escherichia coli [E. coli] as the cause of diseases classified elsewhere; Z85.3 Personal history of malignant neoplasm of breast; E78.00 Pure hypercholesterolemia, unspecified; H54.7 Unspecified visual loss; H91.90 Unspecified hearing loss, unspecified ear; Z87.440 Personal history of urinary (tract) infections; M81.0 Age-related osteoporosis without current pathological fracture; M19.90 Unspecified osteoarthritis, unspecified site; M54.9 Dorsalgia, unspecified; G89.29 Other chronic pain; F41.9 Anxiety disorder, unspecified; Z90.12 Acquired absence of left breast and nipple; Z79.82 Long term (current) use of aspirin; Z88.8 Allergy status to other drugs, medicaments and biological substances
CPT/HCPCS: 36415; 71045; 80053; 81001; 83735; 84443; 84484; 85025; 93005; 96360; 96361; 99285; J7030; 80048; 87086; 87088; 87186; A9270-GY; J0696; J1650; J3490; J7050

== ENCOUNTER 2018-04-28 16:30 | Emergency (ER) | payer MEDICARE, BC ==
--- NOTE | 2018-04-28 17:17 | EDM.PDOC ---
ED HPI GENERAL MEDICAL PROBLEM - General Chief Complaint: Cardiovascular Problem Stated Complaint: HEART ISSUES Time Seen by Provider: 04/28/18 17:05 Source of Information: Reports: Patient, Old Records, RN History Limitations: Reports: No Limitations - History of Present Illness INITIAL COMMENTS - FREE TEXT/NARRATIVE: 82 yo female returns with some irregular heart beats associated with light- headedness. No other sx's. 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 She did well in the hospital with once daily extended release diltiazem 120 mg daily. While she is still doing better on this med now that she did pre-hospitalization, she is not doing as well as she did while in the latter stages of her admission. Takes this medication in the mornings, this med is in capsule form. Onset: Today Onset Date: 04/28/18 Onset Time: 14:00 Duration: Hour(s):, Improving Location: Reports: Chest Quality: Reports: Other (no pain) Severity: Moderate Improves with: Reports: Other (unknown now, is overall better with Diltiazem. 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 ) - Related Data Allergies Allergy/AdvReac Type Severity Reaction Status Date / Time citalopram [From Celexa] Allergy Cannot Verified 04/28/18 16:53 Remember Home Meds: Home Meds Calcium Carbonate/Vitamin D2 [Oyster Shell Calcium-Vit D Tab] 200 - 500 mg PO DAILY 12/09/15 [History] Alendronate Sodium [Fosamax] 70 mg PO WEEKLY 12/07/17 [History] Anastrozole [Arimidex] 1 mg PO BEDTIME 12/07/17 [History] Aspirin 81 mg PO BEDTIME 12/07/17 [History] Simvastatin 5 mg PO BEDTIME 12/07/17 [History] dilTIAZem HCl [Diltiazem 24Hr Cd] 120 mg PO DAILY #30 cap.er.24h 04/23/18 [Rx] Diltiazem HCl [Cartia Xt] 180 mg PO DAILY #15 cap.er.24h 04/28/18 [Rx] Past Medical History HEENT History: Reports: Cataract, Hard of Hearing, Impaired Vision Cardiovascular History: Reports: Arrhythmia, High Cholesterol, Hypertension Other Cardiovascular History: MV prolapse. 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) Psychiatric History: Reports: Anxiety Endocrine/Metabolic History: Reports: Osteopenia, Osteoporosis Hematologic History: Reports: Anemia, Blood Transfusion(s) Oncologic (Cancer) History: Reports: Breast - Infectious Disease History Infectious Disease History: Reports: Chicken Pox, Measles - Past Surgical History Head Surgeries/Procedures: Reports: None HEENT Surgical History: Reports: Cataract Surgery GI Surgical History: Reports: Appendectomy, Colonoscopy, EGD Female Surgical History: Reports: Mastectomy Other Female Surgeries/Procedures: left side mastectomy Oncologic Surgical History: Reports: Biopsy of Breast, Mastectomy, Other (See Below) Other Oncologic Surgeries/Procedures: L mastectomy (~2015) Social & Family History - Tobacco Use Smoking Status *Q: Never Smoker - Caffeine Use Caffeine Use: Reports: None - Recreational Drug Use Recreational Drug Use: No ED ROS GENERAL - Review of Systems Review Of Systems: See Below Constitutional: Reports: No Symptoms HEENT: Reports: No Symptoms Respiratory: Reports: No Symptoms Cardiovascular: Reports: Lightheadedness (when have these palpitations only.), Palpitations Endocrine: Reports: No Symptoms GI/Abdominal: Reports: No Symptoms : Reports: No Symptoms Musculoskeletal: Reports: No Symptoms Skin: Reports: No Symptoms Neurological: Reports: No Symptoms Psychiatric: Reports: No Symptoms ED EXAM, GENERAL - Physical Exam Exam: See Below Exam Limited By: No Limitations General Appearance: Alert, WD/WN, No Apparent Distress Eye Exam: Bilateral Eye: Normal Inspection Ears: Normal External Exam, Normal Canal, Hearing Grossly Normal, Normal TMs Ear Exam: Bilateral Ear: Auricle Normal, Canal Normal, TM normal Nose: Normal Inspection, No Blood Throat/Mouth: Normal Inspection, Normal Lips, Normal Oropharynx, Normal Voice, No Airway Compromise Head: Atraumatic, Normocephalic Neck: Normal Inspection Respiratory/Chest: No Respiratory Distress, Lungs Clear, Normal Breath Sounds, No Accessory Muscle Use Cardiovascular: Regular Rate, Rhythm, No Edema GI/Abdominal: Normal Bowel Sounds, Soft, Non-Tender, No Distention Back Exam: Normal Inspection. 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 Discussed case with the home performance consultant medication aid at [facility]. Recommends increasing Diltiazem to 180 mg qd and then outpatient follow up with them. Last Recorded V/S: Last Vital Signs Temp 35.6 C 04/28/18 16:50 Pulse 75 04/28/18 16:50 Resp 13 04/28/18 16:50 BP 165/69 H 04/28/18 16:50 Pulse Ox 98 04/28/18 16:50 - Orders/Labs/Meds Orders: Active Orders 24 hr Category Date Time Status Cardiac Monitoring [RC] .As Directed Care 04/28/18 16:31 Active Sodium Chloride 0.9% [Saline Flush] Med 04/28/18 17:38 Active 10 ml FLUSH ASDIRECTED PRN Saline Lock Insert [OM.PC] Routine Oth 04/28/18 17:38 Ordered Medication Orders Sodium Chloride (Saline Flush) 10 ml FLUSH ASDIRECTED PRN PRN Reason: Keep Vein Open Labs: Laboratory Tests 04/28/18 Range/Units 17:18 Sodium 138 L (140-148) mmol/L Potassium 4.1 (3.6-5.2) mmol/L Chloride 102 (100-108) mmol/L Carbon Dioxide 29 (21-32) mmol/L Anion Gap 11.1 (5.0-14.0) mmol/L BUN 14 D (7-18) mg/dL Creatinine 0.9 (0.6-1.0) mg/dL Est Cr Clr Drug Dosing 41.62 mL/min Estimated GFR (MDRD) 60 (>60) Glucose 101 (74-106) mg/dL Calcium 9.0 (8.5-10.1) mg/dL Magnesium 2.1 (1.8-2.4) mg/dL Troponin I < 0.017 (0.000-0.056) ng/mL Meds: Medications Generic Name Dose Route Start Last Admin Trade Name Freq PRN Reason Stop Dose Admin Sodium Chloride 10 ml 04/28/18 17:38 Saline Flush FLUSH ASDIRECTED PRN Keep Vein Open Discontinued Medications Generic Name Dose Route Start Last Admin Trade Name Freq PRN Reason Stop Dose Admin Diltiazem HCl 30 mg 04/28/18 17:22 04/28/18 17:28 Cardizem PO 04/28/18 17:23 30 mg ONETIME ONE Administration Departure - Departure Time of Disposition: 17:58 Disposition: Home, Self-Care 01 Condition: Fair Clinical Impression: AV nette re-entry tachycardia Referrals: Boom Hines MD [Primary Care Provider] - Forms: ED Department Discharge Additional Instructions: Take diltiazem 30 mg immediate release tonight as you are getting into bed. Then when [facility] opens in the morning tomorrow start your Cartia XL 180 mg every 24 hrs. Follow up Monday with Dr. Hines. Follow up with Dr. Bill of [facility] adrian, call Monday for an appt. Return as needed. - My Orders Last 24 Hours: My Active Orders 04/28/18 16:31 Cardiac Monitoring [RC] .As Directed 04/28/18 17:38 Sodium Chloride 0.9% [Saline Flush] 10 ml FLUSH ASDIRECTED PRN Saline Lock Insert [OM.PC] Routine - Assessment/Plan Last 24 Hours: My Active Orders 04/28/18 16:31 Cardiac Monitoring [RC] .As Directed 04/28/18 17:38 Sodium Chloride 0.9% [Saline Flush] 10 ml FLUSH ASDIRECTED PRN Saline Lock Insert [OM.PC] Routine
[2018-04-28] MEDS ORDERED: Diltiazem IR 30 MG Tab PO ONE ×2 (17:22→17:48)
[2018-04-28] MEDS ORDERED: Sodium Chloride 0.9% 10 ML Syringe FLUSH PRN (17:38)
[2018-04-28 18:08] VITALS: BP 142/65
== END 2018-04-28 18:20 | disposition home or self-care (01) ==
LOC: JP.ED 16:30
DX: I47.1 Supraventricular tachycardia (principal); E78.00 Pure hypercholesterolemia, unspecified; I10 Essential (primary) hypertension; J45.909 Unspecified asthma, uncomplicated; F41.9 Anxiety disorder, unspecified; Z79.899 Other long term (current) drug therapy
CPT/HCPCS: 36415; 80048; 83735; 84484; 99284; A9270

== ENCOUNTER 2019-01-05 10:49 | Emergency (ER) | payer MEDICARE, BC ==
[2019-01-05 11:30] VITALS: BP 113/62
[2019-01-05] MEDS ORDERED: Metoprolol Tartrate 25 MG Tab PO ONE (12:10)
--- NOTE | 2019-01-05 12:22 | EDM.PDOC ---
ED HPI GENERAL MEDICAL PROBLEM - General Chief Complaint: Cardiovascular Problem Stated Complaint: HEART ISSUES Time Seen by Provider: 01/05/19 12:17 Source of Information: Reports: Patient History Limitations: Reports: No Limitations - History of Present Illness INITIAL COMMENTS - FREE TEXT/NARRATIVE: p arrived stating that she is having freqent epodes of rapid heart beats. She has not had chest pain. She has not been sob. She has a history of PAT. She has seen Dr Troncoso with this. She is on cardizem. She has not been ill otherwise. Onset: Other ( started yesterday. ) Duration: Hour(s): Location: Reports: Chest, Other (pt is ahving the episodes of rapid rhythm and she feels very weak when these are too frequent. ) Associated Symptoms: Reports: Weakness - Related Data Allergies Allergy/AdvReac Type Severity Reaction Status Date / Time citalopram [From Celexa] Allergy Cannot Verified 01/05/19 11:22 Remember Home Meds: Home Meds Calcium Carbonate/Vitamin D2 [Oyster Shell Calcium-Vit D Tab] 200 - 500 mg PO DAILY 12/09/15 [History] Alendronate Sodium [Fosamax] 70 mg PO WEEKLY 12/07/17 [History] Anastrozole [Arimidex] 1 mg PO BEDTIME 12/07/17 [History] Aspirin 81 mg PO BEDTIME 12/07/17 [History] Simvastatin 5 mg PO BEDTIME 12/07/17 [History] Diltiazem HCl [Cartia Xt] 180 mg PO DAILY #15 cap.er.24h 04/28/18 [Rx] Past Medical History HEENT History: Reports: Cataract, Hard of Hearing, Impaired Vision Cardiovascular History: Reports: Arrhythmia, High Cholesterol, Hypertension Other Cardiovascular History: MV prolapse. 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: Musculoskeletal History: Reports: Back Pain, Chronic, Osteoarthritis, Other ( See Below) Other Musculoskeletal History: 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) Psychiatric History: Reports: Anxiety Endocrine/Metabolic History: Reports: Osteopenia, Osteoporosis Hematologic History: Reports: Anemia, Blood Transfusion(s) Oncologic (Cancer) History: Reports: Breast - Infectious Disease History Infectious Disease History: Reports: Chicken Pox, Measles - Past Surgical History Head Surgeries/Procedures: Reports: None HEENT Surgical History: Reports: Cataract Surgery GI Surgical History: Reports: Appendectomy, Colonoscopy, EGD Female Surgical History: Reports: Mastectomy Other Female Surgeries/Procedures: left side mastectomy Oncologic Surgical History: Reports: Biopsy of Breast, Mastectomy, Other (See Below) Other Oncologic Surgeries/Procedures: L mastectomy (~2016) Dermatological Surgical History: Reports: None Social & Family History - Tobacco Use Smoking Status *Q: Never Smoker - Caffeine Use Caffeine Use: Reports: None ED ROS GENERAL - Review of Systems Review Of Systems: See Below Constitutional: Reports: No Symptoms HEENT: Reports: No Symptoms Respiratory: Reports: No Symptoms Cardiovascular: Reports: Lightheadedness, Palpitations, Other (pt feels weak at that time when her heart is rapid. ) Endocrine: Reports: No Symptoms GI/Abdominal: Reports: No Symptoms : Reports: No Symptoms Musculoskeletal: Reports: No Symptoms Skin: Reports: No Symptoms ED EXAM, GENERAL - Physical Exam Exam: See Below Free Text/Narrative:: pt arrived having a rpid heart beat. She states these last just a few minutes and then she is bck to a regular rate. Exam Limited By: No Limitations General Appearance: Alert, Anxious, Mild Distress Ears: Normal TMs Nose: Normal Inspection Throat/Mouth: Normal Inspection Head: Atraumatic Neck: Normal Inspection Respiratory/Chest: No Respiratory Distress Cardiovascular: Regular Rate, Rhythm, Tachycardia, Other ( ekg showed the rate was 156 and regular. ) GI/Abdominal: Soft, Non-Tender (Female) Exam: Deferred Rectal (Female) Exam: Deferred Back Exam: Normal Inspection Extremities: Normal Inspection Neurological: Alert, Oriented, Normal Cognition Psychiatric: Anxious Course - Vital Signs Last Recorded V/S: Last Vital Signs Temp 36.3 C 01/05/19 11:34 Pulse 71 01/05/19 11:34 Resp 19 01/05/19 11:34 BP 113/62 01/05/19 11:34 Pulse Ox 98 01/05/19 11:34 - Orders/Labs/Meds Orders: Active Orders 24 hr Category Date Time Status EKG Documentation Completion [RC] ASDIRECTED Care 01/05/19 11:16 Active Chest 1V Frontal [CR] Stat Exams 01/05/19 11:17 Taken CULTURE URINE [RM] Stat Lab 01/05/19 11:20 Received TSH ULTRASENSITIVE [CHEM] Stat Lab 01/05/19 11:25 Received EKG 12 Lead [EK] Routine Ther 01/05/19 11:16 Ordered Labs: Laboratory Tests 01/05/19 01/05/19 01/05/19 Range/Units 11:25 11:25 11:25 WBC 6.8 (4.5-11.0) K/uL RBC 4.69 (3.30-5.50) M/uL Hgb 14.6 D (12.0-15.0) g/dL Hct 42.0 (36.0-48.0) % MCV 90 (80-98) fL MCH 31 (27-31) pg MCHC 35 (32-36) % Plt Count 267 (150-400) K/uL Neut % (Auto) 71 H (36-66) % Lymph % (Auto) 14 L (24-44) % [place] % (Auto) 12 H (2-6) % Eos % (Auto) 2 (2-4) % Baso % (Auto) 0 (0-1) % Sodium 139 L (140-148) mmol/L Potassium 4.0 (3.6-5.2) mmol/L Chloride 103 (100-108) mmol/L Carbon Dioxide 27 (21-32) mmol/L Anion Gap 13.0 (5.0-14.0) mmol/L BUN 10 (7-18) mg/dL Creatinine 1.0 (0.6-1.0) mg/dL Est Cr Clr Drug Dosing 35.26 mL/min Estimated GFR (MDRD) 53 L (>60) Glucose 87 (74-106) mg/dL Calcium 9.1 (8.5-10.1) mg/dL Magnesium (1.8-2.4) mg/dL Total Bilirubin 0.4 (0.2-1.0) mg/dL AST 15 (15-37) U/L ALT 17 (12-78) U/L Alkaline Phosphatase 54 (46-116) U/L Troponin I < 0.017 (0.000-0.056) ng/mL Total Protein 7.0 (6.4-8.2) g/dL Albumin 3.8 (3.4-5.0) g/dL Globulin 3.2 (2.3-3.5) g/dL Albumin/Globulin Ratio 1.2 (1.2-2.2) Urine Color (YELLOW) Urine Appearance (CLEAR) Urine pH (5.0-8.0) Ur Specific [place] (1.008-1.030) Urine Protein (NEGATIVE) mg/dL Urine Glucose (UA) (NEGATIVE) mg/dL Urine Ketones (NEGATIVE) mg/dL Urine Occult Blood (NEGATIVE) Urine Nitrite (NEGATIVE) Urine Bilirubin (NEGATIVE) Urine Urobilinogen (0.2-1.0) EU/dL Ur Leukocyte Esterase (NEGATIVE) Urine RBC (0-5) Urine WBC (0-5) Ur Epithelial Cells Amorphous Sediment Urine Bacteria Urine Mucus Urinalysis Comment 01/05/19 01/05/19 Range/Units 11:25 11:26 WBC (4.5-11.0) K/uL RBC (3.30-5.50) M/uL Hgb (12.0-15.0) g/dL Hct (36.0-48.0) % MCV (80-98) fL MCH (27-31) pg MCHC (32-36) % Plt Count (150-400) K/uL Neut % (Auto) (36-66) % Lymph % (Auto) (24-44) % [place] % (Auto) (2-6) % Eos % (Auto) (2-4) % Baso % (Auto) (0-1) % Sodium (140-148) mmol/L Potassium (3.6-5.2) mmol/L Chloride (100-108) mmol/L Carbon Dioxide (21-32) mmol/L Anion Gap (5.0-14.0) mmol/L BUN (7-18) mg/dL Creatinine (0.6-1.0) mg/dL Est Cr Clr Drug Dosing mL/min Estimated GFR (MDRD) (>60) Glucose (74-106) mg/dL Calcium (8.5-10.1) mg/dL Magnesium 2.0 (1.8-2.4) mg/dL Total Bilirubin (0.2-1.0) mg/dL AST (15-37) U/L ALT (12-78) U/L Alkaline Phosphatase (46-116) U/L Troponin I (0.000-0.056) ng/mL Total Protein (6.4-8.2) g/dL Albumin (3.4-5.0) g/dL Globulin (2.3-3.5) g/dL Albumin/Globulin Ratio (1.2-2.2) Urine Color Yellow (YELLOW) Urine Appearance Clear (CLEAR) Urine pH 7.0 (5.0-8.0) Ur Specific [place] 1.015 (1.008-1.030) Urine Protein Negative (NEGATIVE) mg/dL Urine Glucose (UA) Negative (NEGATIVE) mg/dL Urine Ketones Trace H (NEGATIVE) mg/dL Urine Occult Blood Negative (NEGATIVE) Urine Nitrite Positive H (NEGATIVE) Urine Bilirubin Negative (NEGATIVE) Urine Urobilinogen 0.2 (0.2-1.0) EU/dL Ur Leukocyte Esterase Small H (NEGATIVE) Urine RBC Not seen (0-5) Urine WBC 0-5 (0-5) Ur Epithelial Cells Rare Amorphous Sediment Rare Urine Bacteria Rare Urine Mucus Not seen Urinalysis Comment See note Meds: Medications Discontinued Medications Generic Name Dose Route Start Last Admin Trade Name Freq PRN Reason Stop Dose Admin Metoprolol Tartrate 12.5 mg 01/05/19 12:10 Lopressor PO 01/05/19 12:11 ONETIME ONE - Re-Assessments/Exams Free Text/Narrative Re-Assessment/Exam: 01/05/19 12:23 chest xray looked good. Her lab work looked good excep she has a UTI. Departure - Departure Time of Disposition: 12:23 Disposition: Home, Self-Care 01 Condition: Fair Clinical Impression: PAT (paroxysmal atrial tachycardia), UTI (urinary tract infection) Referrals: Boom Hines MD [Primary Care Provider] - Care Plan Goals: push fluids, metoprol tartrate 12.5 mg daily, cipro 500mg bid, appt with Dr Hines mon. - My Orders Last 24 Hours: My Active Orders 01/05/19 11:16 EKG Documentation Completion [RC] ASDIRECTED EKG 12 Lead [EK] Routine 01/05/19 11:17 Chest 1V Frontal [CR] Stat 01/05/19 11:20 CULTURE URINE [RM] Stat 01/05/19 11:25 TSH ULTRASENSITIVE [CHEM] Stat - Assessment/Plan Last 24 Hours: My Active Orders 01/05/19 11:16 EKG Documentation Completion [RC] ASDIRECTED EKG 12 Lead [EK] Routine 01/05/19 11:17 Chest 1V Frontal [CR] Stat 01/05/19 11:20 CULTURE URINE [RM] Stat 01/05/19 11:25 TSH ULTRASENSITIVE [CHEM] Stat
[2019-01-05 12:26] VITALS: PULSE 64
--- NOTE | 2019-01-05 12:48 | CRLCR ---
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 Lungs are clear of new focal opacities. No pneumothorax. Dictated by Brandon Haywood MD @ Jan 05 2019 12:47PM Signed by Dr. Brandon Haywood @ Jan 05 2019 12:48PM
== END 2019-01-05 12:38 | disposition home or self-care (01) ==
LOC: JP.ED 10:49
DX: I47.1 Supraventricular tachycardia (principal); N39.0 Urinary tract infection, site not specified; E78.00 Pure hypercholesterolemia, unspecified; I10 Essential (primary) hypertension; J45.909 Unspecified asthma, uncomplicated; Z88.8 Allergy status to other drugs, medicaments and biological substances; Z79.82 Long term (current) use of aspirin; Z79.899 Other long term (current) drug therapy
CPT/HCPCS: 36415; 71045; 80053; 81001; 83735; 84443; 84484; 85025; 87086; 93005; 99285; A9270; 87088; 87186

== ENCOUNTER 2019-02-20 09:38 | Inpatient (IN) | payer MEDICARE, BC ==
--- NOTE | 2019-02-20 10:43 | EDM.PDOC ---
ED HPI GENERAL MEDICAL PROBLEM - General Chief Complaint: Cardiovascular Problem Stated Complaint: HEART PROBLEMS Time Seen by Provider: 02/20/19 10:32 Source of Information: Reports: Patient History Limitations: Reports: No Limitations - History of Present Illness INITIAL COMMENTS - FREE TEXT/NARRATIVE: pt has a history of of av nette reentrant tachy. She has seen the electrophysilogist in the cardiology dept at [facility]. Onset: Gradual, Other (last 2-3 days.) Duration: Hour(s): Location: Reports: Chest Associated Symptoms: Reports: Other ( dizzy when she has the rapid rhythm, ) Headache Pain Score (Numeric/FACES): 3 - Related Data Allergies Allergy/AdvReac Type Severity Reaction Status Date / Time citalopram [From Celexa] Allergy Cannot Verified 02/20/19 09:56 Remember Home Meds: Home Meds Calcium Carbonate/Vitamin D2 [Oyster Shell Calcium-Vit D Tab] 200 - 500 mg PO DAILY 12/09/15 [History] Alendronate Sodium [Fosamax] 70 mg PO WEEKLY 12/07/17 [History] Anastrozole [Arimidex] 1 mg PO BEDTIME 12/07/17 [History] Aspirin 81 mg PO BEDTIME 12/07/17 [History] Simvastatin 5 mg PO BEDTIME 12/07/17 [History] Metoprolol Tartrate [Lopressor] 12.5 mg PO DAILY 02/20/19 [History] Cephalexin [Keflex] 500 mg PO Q8H #9 capsule 02/22/19 [Rx] Diltiazem HCl [Cartia Xt] 180 mg PO BID #15 cap.er.24h 02/22/19 [Rx] Past Medical History HEENT History: Reports: Cataract, Hard of Hearing, Impaired Vision Cardiovascular History: Reports: Arrhythmia, High Cholesterol, Hypertension Other Cardiovascular History: MV prolapse. 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) Psychiatric History: Reports: Anxiety Endocrine/Metabolic History: Reports: Osteopenia, Osteoporosis Hematologic History: Reports: Anemia, Blood Transfusion(s) Oncologic (Cancer) History: Reports: Breast - Infectious Disease History Infectious Disease History: Reports: Chicken Pox, Measles - Past Surgical History Head Surgeries/Procedures: Reports: None HEENT Surgical History: Reports: Cataract Surgery GI Surgical History: Reports: Appendectomy, Colonoscopy, EGD Female Surgical History: Reports: Mastectomy Other Female Surgeries/Procedures: left side mastectomy Oncologic Surgical History: Reports: Biopsy of Breast, Mastectomy, Other (See Below) Other Oncologic Surgeries/Procedures: L mastectomy (~2015) Dermatological Surgical History: Reports: None Social & Family History - Tobacco Use Smoking Status *Q: Never Smoker - Caffeine Use Caffeine Use: Reports: None - Recreational Drug Use Recreational Drug Use: No ED ROS GENERAL - Review of Systems Review Of Systems: See Below Constitutional: Reports: Weakness, Other (pt feels very washed out. ) HEENT: Reports: No Symptoms Respiratory: Reports: Other (mild sob. ) Cardiovascular: Reports: Palpitations, Other ( frequent episodes of tachy. ) Endocrine: Reports: No Symptoms GI/Abdominal: Reports: No Symptoms : Reports: No Symptoms Musculoskeletal: Reports: No Symptoms Skin: Reports: No Symptoms Neurological: Reports: No Symptoms Psychiatric: Reports: No Symptoms ED EXAM, GENERAL - Physical Exam Exam: See Below Free Text/Narrative:: pt arrived feeling like her rhythm issues have gotten alot worse in the last 2- 3 days. She does not feel like she has overdone. She also feels like she is not tolerating the metoprol well. Exam Limited By: No Limitations General Appearance: Alert, Anxious, Mild Distress, Other (pupils are equal and reactive. ) Ears: Normal TMs Nose: Normal Inspection Throat/Mouth: Normal Inspection Head: Atraumatic Neck: Normal Inspection Respiratory/Chest: No Respiratory Distress Cardiovascular: Tachycardia, Other (pt is having episodes of heart rates in the 150 range. She has had about 10-15 episodes since arrival. ) GI/Abdominal: Soft, Non-Tender (Female) Exam: Deferred Rectal (Female) Exam: Deferred Back Exam: Normal Inspection Extremities: Normal Inspection Neurological: Alert, Oriented, Normal Cognition Psychiatric: Anxious Course - Vital Signs Last Recorded V/S: Last Vital Signs Temp 36.6 C 02/22/19 07:36 Pulse 56 L 02/21/19 22:00 Resp 12 02/22/19 07:36 BP 126/61 02/22/19 07:36 Pulse Ox 98 02/22/19 07:36 - Orders/Labs/Meds Labs: Laboratory Tests 02/20/19 02/20/19 02/20/19 Range/Units 10:40 10:43 10:43 WBC 7.5 (4.5-11.0) K/uL RBC 4.58 (3.30-5.50) M/uL Hgb 14.3 (12.0-15.0) g/dL Hct 41.6 (36.0-48.0) % MCV 91 (80-98) fL MCH 31 (27-31) pg MCHC 34 (32-36) % Plt Count 292 (150-400) K/uL Neut % (Auto) 76 H (36-66) % Lymph % (Auto) 11 L (24-44) % [place] % (Auto) 12 H (2-6) % Eos % (Auto) 2 (2-4) % Baso % (Auto) 0 (0-1) % Sodium 137 L (140-148) mmol/L Potassium 4.2 (3.6-5.2) mmol/L Chloride 101 (100-108) mmol/L Carbon Dioxide 29 (21-32) mmol/L Anion Gap 11.2 (5.0-14.0) mmol/L BUN 11 (7-18) mg/dL Creatinine 0.9 (0.6-1.0) mg/dL Est Cr Clr Drug Dosing 40.90 mL/min Estimated GFR (MDRD) 60 (>60) Glucose 108 H (74-106) mg/dL Calcium 8.4 L (8.5-10.1) mg/dL Magnesium (1.8-2.4) mg/dL Total Bilirubin 0.3 (0.2-1.0) mg/dL AST 13 L (15-37) U/L ALT 19 (12-78) U/L Alkaline Phosphatase 61 (46-116) U/L Troponin I (0.000-0.056) ng/mL Total Protein 6.6 (6.4-8.2) g/dL Albumin 3.3 L (3.4-5.0) g/dL Globulin 3.3 (2.3-3.5) g/dL Albumin/Globulin Ratio 1.0 L (1.2-2.2) TSH, Ultra Sensitive 1.415 (0.358-3.740) uIU/mL 02/20/19 02/20/19 Range/Units 10:44 10:44 WBC (4.5-11.0) K/uL RBC (3.30-5.50) M/uL Hgb (12.0-15.0) g/dL Hct (36.0-48.0) % MCV (80-98) fL MCH (27-31) pg MCHC (32-36) % Plt Count (150-400) K/uL Neut % (Auto) (36-66) % Lymph % (Auto) (24-44) % [place] % (Auto) (2-6) % Eos % (Auto) (2-4) % Baso % (Auto) (0-1) % Sodium (140-148) mmol/L Potassium (3.6-5.2) mmol/L Chloride (100-108) mmol/L Carbon Dioxide (21-32) mmol/L Anion Gap (5.0-14.0) mmol/L BUN (7-18) mg/dL Creatinine (0.6-1.0) mg/dL Est Cr Clr Drug Dosing mL/min Estimated GFR (MDRD) (>60) Glucose (74-106) mg/dL Calcium (8.5-10.1) mg/dL Magnesium 2.1 (1.8-2.4) mg/dL Total Bilirubin (0.2-1.0) mg/dL AST (15-37) U/L ALT (12-78) U/L Alkaline Phosphatase (46-116) U/L Troponin I < 0.017 (0.000-0.056) ng/mL Total Protein (6.4-8.2) g/dL Albumin (3.4-5.0) g/dL Globulin (2.3-3.5) g/dL Albumin/Globulin Ratio (1.2-2.2) TSH, Ultra Sensitive (0.358-3.740) uIU/mL Meds: Medications Discontinued Medications Generic Name Dose Route Start Last Admin Trade Name Freq PRN Reason Stop Dose Admin Acetaminophen 650 mg 02/20/19 14:14 Tylenol PO Q4H PRN Pain (Mild 1-3)/fever Anastrozole 1 mg 02/20/19 21:00 02/21/19 20:29 Arimidex PO 1 mg BEDTIME CAROL Administration Aspirin 81 mg 02/20/19 21:00 02/21/19 20:29 Aspirin PO 81 mg BEDTIME CAROL Administration Diltiazem HCl 10 mg 02/20/19 13:17 02/20/19 13:29 Diltiazem IVPUSH 02/20/19 13:18 10 mg ONETIME ONE Administration Diltiazem HCl 180 mg 02/21/19 09:00 Cardizem Cd PO DAILY CAROL Diltiazem HCl 30 mg 02/20/19 16:00 02/20/19 15:06 Cardizem PO 30 mg Q6HR CAROL Administration Diltiazem HCl 30 mg 02/20/19 22:00 02/20/19 21:30 Cardizem PO 30 mg Q8HR CAROL Administration Diltiazem HCl 5 mg 02/20/19 22:15 02/20/19 22:27 Diltiazem IVPUSH 02/20/19 22:16 5 mg ONETIME ONE Administration Diltiazem HCl 30 mg 02/21/19 04:00 02/21/19 10:25 Cardizem PO Not Given Q6HR CAROL Diltiazem HCl 240 mg 02/21/19 09:00 02/21/19 09:09 Cardizem Cd PO 240 mg DAILY CAROL Administration Diltiazem HCl 5 mg 02/21/19 22:18 02/21/19 22:33 Diltiazem IVPUSH 02/21/19 22:19 5 mg ONETIME ONE Administration Diltiazem HCl 30 mg 02/21/19 22:19 02/21/19 22:40 Cardizem PO 02/21/19 22:20 30 mg ONETIME ONE Administration Enoxaparin Sodium 40 mg 02/20/19 16:00 02/21/19 15:54 Lovenox SUBCUT 40 mg Q24H CAROL Administration Diltiazem HCl 125 mg/ Sodium 125 mls @ 5 mls/hr 02/20/19 14:14 Chloride IV TITRATE CAROL Protocol 5 MG/HR Ceftriaxone Sodium 1 gm/ 50 mls @ 100 mls/hr 02/20/19 20:00 02/21/19 20:29 Sodium Chloride IV 100 mls/hr Q24H CAROL Administration Melatonin 6 mg 02/21/19 22:23 02/21/19 22:40 Melatonin PO 6 mg BEDTIME PRN Administration Insomnia Ondansetron HCl 4 mg 02/20/19 14:14 Zofran IV Q4H PRN Nausea/Vomiting Polyethylene Glycol 17 gm 02/20/19 14:14 Miralax PO DAILY PRN Constipation Sodium Chloride 10 ml 02/20/19 12:10 02/20/19 13:01 Saline Flush FLUSH 10 ml ASDIRECTED PRN Administration Keep Vein Open Sodium Chloride 10 ml 02/20/19 14:14 Saline Flush FLUSH ASDIRECTED PRN Keep Vein Open - Re-Assessments/Exams Free Text/Narrative Re-Assessment/Exam: 02/20/19 12:08 pt was found to have normal lab work. This was discussed with Dr Gutierrez and she will be adm,iotted for a observation Departure - Departure Time of Disposition: 12:09 Disposition: Admitted As Inpatient 66 Condition: Fair Clinical Impression: Atrial arrhythmia Sepsis Event Note - Evaluation Sepsis Screening Result: No Definite Risk - Focused Exam Date Exam was Performed: 02/25/19 Time Exam was Performed: 08:09
[2019-02-20] MEDS ORDERED: Sodium Chloride 0.9% 10 ML Syringe FLUSH PRN ×2 (12:10→14:14)
[2019-02-20] MEDS ORDERED: Diltiazem 25 MG/5 ML SDV IVPUSH ONE ×2 (13:17→22:15)
--- NOTE | 2019-02-20 13:50 | CRLCR ---
INDICATION: Rapid heart rate. COMPARISON: 01/05/2019. FINDINGS: A portable upright AP view of the chest was obtained. The cardiac silhouette and pulmonary vasculature are within normal limits. The lungs are clear bilaterally. IMPRESSION: No evidence of acute pulmonary disease. Dictated by Chintan Brandon MD @ 02/20/2019 1:49:45 PM Dictated by: Chintan Brandon MD @ 02/20/2019 13:49:52 (Electronically Signed)
--- NOTE | 2019-02-20 14:00 | PCM.HP.2 ---
H&P History of Present Illness - General Date of Service: 02/20/19 Admit Problem/Dx: Admission Diagnosis/Problem Admission Diagnosis/Problem Tachycardia Source of Information: Patient, Family, Old Records, Provider, RN Notes Reviewed History Limitations: Reports: No Limitations - History of Present Illness Initial Comments - Free Text/Narative: Ms. Yo is a 89-year-old woman who was admitted through the emergency department with weakness and lightheadedness secondary to recurrent episodes of AV reentrant tachycardia. She has had a previous history of atrial tachycardia with intermittent exacerbations. Previously had been well controlled with beta- syd therapy, but she was intolerant of increased doses of beta-syd because of bradycardia. Last spring she was started on diltiazem and control has been fairly good until the past month. She has had recurrent episodes that have persisted despite increasing dose of her diltiazem. Over the last 2 days the episodes have been very frequent occurring several times an hour and while in the emergency department return to sinus rhythm is very short-lived. She feels weak and lightheaded, denies any symptoms of chest pain or pressure or shortness of breath. - Related Data Allergies/Adverse Reactions: Allergies Allergy/AdvReac Type Severity Reaction Status Date / Time citalopram [From Celexa] Allergy Cannot Verified 02/20/19 09:56 Remember Home Medications: Home Meds Calcium Carbonate/Vitamin D2 [Oyster Shell Calcium-Vit D Tab] 200 - 500 mg PO DAILY 12/09/15 [History] Alendronate Sodium [Fosamax] 70 mg PO WEEKLY 12/07/17 [History] Anastrozole [Arimidex] 1 mg PO BEDTIME 12/07/17 [History] Aspirin 81 mg PO BEDTIME 12/07/17 [History] Simvastatin 5 mg PO BEDTIME 12/07/17 [History] Diltiazem HCl [Cartia Xt] 180 mg PO DAILY #15 cap.er.24h 04/28/18 [Rx] Metoprolol Tartrate [Lopressor] 12.5 mg PO DAILY 02/20/19 [History] Past Medical History HEENT History: Reports: Cataract, Hard of Hearing, Impaired Vision Cardiovascular History: Reports: Arrhythmia, High Cholesterol, Hypertension Other Cardiovascular History: MV prolapse. tachycardia Respiratory History: Reports: Asthma Gastrointestinal History: Reports: None Genitourinary History: Reports: UTI, Recurrent [employer]IC[employer] History: Reports: Musculoskeletal History: Reports: Back Pain, Chronic, Osteoarthritis, Other ( See Below) Other Musculoskeletal History: 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) Psychiatric History: Reports: Anxiety Endocrine/Metabolic History: Reports: Osteopenia, Osteoporosis Hematologic History: Reports: Anemia, Blood Transfusion(s) Oncologic (Cancer) History: Reports: Breast - Infectious Disease History Infectious Disease History: Reports: Chicken Pox, Measles - Past Surgical History Head Surgeries/Procedures: Reports: None HEENT Surgical History: Reports: Cataract Surgery GI Surgical History: Reports: Appendectomy, Colonoscopy, EGD Female Surgical History: Reports: Mastectomy Other Female Surgeries/Procedures: left side mastectomy Oncologic Surgical History: Reports: Biopsy of Breast, Mastectomy, Other (See Below) Other Oncologic Surgeries/Procedures: L mastectomy (~2015) Dermatological Surgical History: Reports: None Social & Family History - Tobacco Use Smoking Status *Q: Never Smoker - Caffeine Use Caffeine Use: Reports: None - Recreational Drug Use Recreational Drug Use: No H&P Review of Systems - Review of Systems: Review Of Systems: See Below General: Reports: Weakness, Fatigue, Diaphoresis, Decreased Appetite. Denies: Fever, Chills HEENT: Reports: No Symptoms Pulmonary: Reports: No Symptoms Cardiovascular: Reports: Palpitations, Lightheadedness. Denies: Chest Pain, Dyspnea on Exertion, Orthopnea, PND, Edema, Syncope Gastrointestinal: Reports: No Symptoms Genitourinary: Reports: No Symptoms Musculoskeletal: Reports: No Symptoms Skin: Reports: No Symptoms Psychiatric: Reports: No Symptoms Neurological: Reports: No Symptoms Hematologic/Lymphatic: Reports: No Symptoms Immunologic: Reports: No Symptoms Exam - Exam Exam: See Below - Vital Signs Vital Signs: Last Vital Signs Temp 96.8 F 02/20/19 10:00 Pulse 55 L 02/20/19 10:46 Resp 20 02/20/19 13:37 BP 113/65 02/20/19 13:37 Pulse Ox 98 02/20/19 13:37 Weight: 137 lb - Exam General: Alert, Oriented, Cooperative, Moderate Distress HEENT: Conjunctiva Clear, Hearing Intact, Mucosa Moist & [place], Normal Nasal Septum, Posterior Pharynx Clear, Pupils Equal Neck: Supple, Trachea Midline, +2 Carotid Pulse wo Bruit Lungs: Clear to Auscultation, Normal Respiratory Effort Cardiovascular: Normal S1, Normal S2, Tachycardia. No: Systolic Murmur, Diastolic Murmur GI/Abdominal Exam: Soft, Non-Tender, No Organomegaly, No Distention Extremities: Non-Tender, No Pedal Edema Skin: Warm, Dry, Intact Neurological: Cranial Nerves Intact, Strength Equal Bilateral, Normal Speech, Normal Tone, Sensation Intact. No: Focal Deficit Neuro Extensive - Mental Status: Alert, Oriented x3, Normal Mood/Affect, Normal Cognition, Memory Intact - Patient Data Lab Results Last 24 hrs: Laboratory Results - last 24 hr 02/20/19 02/20/19 02/20/19 Range/Units 10:40 10:43 10:43 WBC 7.5 (4.5-11.0) K/uL RBC 4.58 (3.30-5.50) M/uL Hgb 14.3 (12.0-15.0) g/dL Hct 41.6 (36.0-48.0) % MCV 91 (80-98) fL MCH 31 (27-31) pg MCHC 34 (32-36) % Plt Count 292 (150-400) K/uL Neut % (Auto) 76 H (36-66) % Lymph % (Auto) 11 L (24-44) % [place] % (Auto) 12 H (2-6) % Eos % (Auto) 2 (2-4) % Baso % (Auto) 0 (0-1) % Sodium 137 L (140-148) mmol/L Potassium 4.2 (3.6-5.2) mmol/L Chloride 101 (100-108) mmol/L Carbon Dioxide 29 (21-32) mmol/L Anion Gap 11.2 (5.0-14.0) mmol/L BUN 11 (7-18) mg/dL Creatinine 0.9 (0.6-1.0) mg/dL Est Cr Clr Drug Dosing 40.90 mL/min Estimated GFR (MDRD) 60 (>60) Glucose 108 H (74-106) mg/dL Calcium 8.4 L (8.5-10.1) mg/dL Magnesium (1.8-2.4) mg/dL Total Bilirubin 0.3 (0.2-1.0) mg/dL AST 13 L (15-37) U/L ALT 19 (12-78) U/L Alkaline Phosphatase 61 (46-116) U/L Troponin I (0.000-0.056) ng/mL Total Protein 6.6 (6.4-8.2) g/dL Albumin 3.3 L (3.4-5.0) g/dL Globulin 3.3 (2.3-3.5) g/dL Albumin/Globulin Ratio 1.0 L (1.2-2.2) TSH, Ultra Sensitive 1.415 (0.358-3.740) uIU/mL 02/20/19 02/20/19 Range/Units 10:44 10:44 WBC (4.5-11.0) K/uL RBC (3.30-5.50) M/uL Hgb (12.0-15.0) g/dL Hct (36.0-48.0) % MCV (80-98) fL MCH (27-31) pg MCHC (32-36) % Plt Count (150-400) K/uL Neut % (Auto) (36-66) % Lymph % (Auto) (24-44) % [place] % (Auto) (2-6) % Eos % (Auto) (2-4) % Baso % (Auto) (0-1) % Sodium (140-148) mmol/L Potassium (3.6-5.2) mmol/L Chloride (100-108) mmol/L Carbon Dioxide (21-32) mmol/L Anion Gap (5.0-14.0) mmol/L BUN (7-18) mg/dL Creatinine (0.6-1.0) mg/dL Est Cr Clr Drug Dosing mL/min Estimated GFR (MDRD) (>60) Glucose (74-106) mg/dL Calcium (8.5-10.1) mg/dL Magnesium 2.1 (1.8-2.4) mg/dL Total Bilirubin (0.2-1.0) mg/dL AST (15-37) U/L ALT (12-78) U/L Alkaline Phosphatase (46-116) U/L Troponin I < 0.017 (0.000-0.056) ng/mL Total Protein (6.4-8.2) g/dL Albumin (3.4-5.0) g/dL Globulin (2.3-3.5) g/dL Albumin/Globulin Ratio (1.2-2.2) TSH, Ultra Sensitive (0.358-3.740) uIU/mL Result Diagrams: 02/20/19 10:43 02/20/19 10:43 Sepsis Event Note - Evaluation Sepsis Screening Result: No Definite Risk - Focused Exam Vital Signs: Vital Signs Temp Pulse Resp BP Pulse Ox 02/20/19 13:37 20 113/65 98 02/20/19 13:30 12 101/57 L 97 02/20/19 10:46 55 L 14 123/59 L 97 02/20/19 10:00 96.8 F 66 18 121/76 96 02/20/19 09:57 96.8 F 66 18 121/76 96 Date Exam was Performed: 02/20/19 Time Exam was Performed: 14:47 *Q Meaningful Use (ADM) - VTE Risk Assess *Q Each Risk Factor Represents 1 Point: None Total Score 1 Point Risk Factors: 0 Each Risk Factor Represents 2 Points: Malignancy (present or previous) Total Score 2 Point Risk Factors: 2 Each Risk Factor Represents 3 Points: Age 75 Years or Greater Total Score 3 Point Risk Factors: 3 Each Risk Factor Represents 5 Points: None Total Score 5 Point Risk Factors: 0 Venous Thromboembolism Risk Factor Score *Q: 5 Problem List Initiated/Reviewed/Updated: Yes Orders Last 24hrs: Active Orders 24 hr Category Date Time Status Patient Status Manage Transfer [TRANSFER] Routine ADT 02/20/19 13:44 Active EKG Documentation Completion [RC] ASDIRECTED Care 02/20/19 10:31 Active Sodium Chloride 0.9% [Saline Flush] Med 02/20/19 12:10 Active 10 ml FLUSH ASDIRECTED PRN Saline Lock Insert [OM.PC] Routine Oth 02/20/19 12:10 Ordered Resuscitation Status Routine Resus Stat 02/20/19 13:46 Ordered EKG 12 Lead [EK] Routine Ther 02/20/19 10:31 Ordered Medication Orders Sodium Chloride (Saline Flush) 10 ml FLUSH ASDIRECTED PRN PRN Reason: Keep Vein Open Last Admin: 02/20/19 13:01 Dose: 10 ml Assessment/Plan Comment:: ASSESSMENT AND PLAN AV REENTRANT TACHYCARDIA-previous history, occurring more frequently during the past month and almost continuous during the last 24 hours. She has been on very low-dose beta-syd and has been intolerant of attempts at increasing dose because of bradycardia and fatigue. Diltiazem over the past 10 months has worked relatively well until recently. Was given a 10 mg dose of IV diltiazem while in the emergency department and his remained in sinus rhythm since then. Present level normal and she denies any symptoms of chest pain or pressure. No significant electrolyte abnormalities, TSH within normal range. -Oral diltiazem 30 mg every 6 hours -Hold metoprolol -Outpatient referral to EP -Echocardiogram in a.m. MAINTENANCE ISSUES -DVT prophylaxis; Lovenox 40 mg subcu daily -GI prophylaxis; not indicated -[place] catheter; not indicated -Nutrition; regular diet -Nicotine dependence; not required CODE STATUS-FULL CODE ADMISSION STATUS-patient will be admitted to inpatient status, expect at least a 2 night hospital stay for evaluation and management of problems as outlined above. At the time of this admission I do not reasonably expected evaluation and management of this problem will require more than a 96 hour hospital stay. DISPOSITION-anticipate discharge to home after the hospital stay. PRIMARY CARE PROVIDER-Dr. Hines - Mortality Measure Prognosis:: Good
[2019-02-20] MEDS ORDERED: Polyethylene Glycol 3350 Powder 17 GM Packet PO PRN (14:14)
[2019-02-20] MEDS ORDERED: Diltiazem 125 MG in Sodium Chloride 0.9% 100 ML IV SCH (14:14)
[2019-02-20] MEDS ORDERED: Acetaminophen 325 MG Tab PO PRN (14:14)
[2019-02-20] MEDS ORDERED: Ondansetron 4 MG/2 ML SDV IV PRN (14:14)
[2019-02-20] MEDS: Enoxaparin 40 MG/0.4 ML Syringe SUBCUT SCH (15:06)
[2019-02-20] MEDS ORDERED: Diltiazem IR 30 MG Tab PO SCH ×2 (16:00→22:00)
[2019-02-20] MEDS: cefTRIAXone 1 GM in Sodium Chloride 0.9% 50 ML IV SCH (20:46)
[2019-02-20] MEDS: Anastrozole 1 MG Tab PO SCH (21:31)
[2019-02-20] MEDS: Aspirin 81 MG Tab.Chew PO SCH (21:31)
[2019-02-21] MEDS: Diltiazem IR 30 MG Tab PO SCH ×2 (03:06→10:25)
[2019-02-21] MEDS ORDERED: Diltiazem 180 MG Cap.CD PO SCH (09:00)
[2019-02-21] MEDS ORDERED: Diltiazem 120 MG Cap.CD PO SCH (09:00)
--- NOTE | 2019-02-21 09:21 | PCM.PN ---
- General Info Date of Service: 02/21/19 Subjective Update: Ms. Yo has been relatively stable since admission with only rare episodes of recurrent tachycardia. She has responded well thus far to increase doses of diltiazem, blood pressure has remained adequate. Functional Status: Reports: Tolerating Diet, Ambulating, Urinating - Review of Systems General: Reports: No Symptoms Pulmonary: Reports: No Symptoms Cardiovascular: Reports: No Symptoms Gastrointestinal: Reports: No Symptoms - Patient Data Vitals - Most Recent: Last Vital Signs Temp 98 F 02/21/19 08:00 Pulse 71 02/21/19 09:09 Resp 14 02/21/19 08:00 BP 114/58 L 02/21/19 09:09 Pulse Ox 96 02/21/19 08:00 Weight - Most Recent: 137 lb I&O - Last 24 Hours: Intake & Output 02/20/19 02/21/19 02/21/19 22:59 06:59 14:59 Intake Total 50 300 120 Output Total 10 Balance 40 300 120 Lab Results Last 24 Hours: Laboratory Results - last 24 hr 02/20/19 02/20/19 02/20/19 Range/Units 10:40 10:43 10:43 WBC 7.5 (4.5-11.0) K/uL RBC 4.58 (3.30-5.50) M/uL Hgb 14.3 (12.0-15.0) g/dL Hct 41.6 (36.0-48.0) % MCV 91 (80-98) fL MCH 31 (27-31) pg MCHC 34 (32-36) % Plt Count 292 (150-400) K/uL Neut % (Auto) 76 H (36-66) % Lymph % (Auto) 11 L (24-44) % [place] % (Auto) 12 H (2-6) % Eos % (Auto) 2 (2-4) % Baso % (Auto) 0 (0-1) % Sodium 137 L (140-148) mmol/L Potassium 4.2 (3.6-5.2) mmol/L Chloride 101 (100-108) mmol/L Carbon Dioxide 29 (21-32) mmol/L Anion Gap 11.2 (5.0-14.0) mmol/L BUN 11 (7-18) mg/dL Creatinine 0.9 (0.6-1.0) mg/dL Est Cr Clr Drug Dosing 40.90 mL/min Estimated GFR (MDRD) 60 (>60) Glucose 108 H (74-106) mg/dL Calcium 8.4 L (8.5-10.1) mg/dL Magnesium (1.8-2.4) mg/dL Total Bilirubin 0.3 (0.2-1.0) mg/dL AST 13 L (15-37) U/L ALT 19 (12-78) U/L Alkaline Phosphatase 61 (46-116) U/L Troponin I (0.000-0.056) ng/mL Total Protein 6.6 (6.4-8.2) g/dL Albumin 3.3 L (3.4-5.0) g/dL Globulin 3.3 (2.3-3.5) g/dL Albumin/Globulin Ratio 1.0 L (1.2-2.2) TSH, Ultra Sensitive 1.415 (0.358-3.740) uIU/mL Urine Color (YELLOW) Urine Appearance (CLEAR) Urine pH (5.0-8.0) Ur Specific [place] (1.008-1.030) Urine Protein (NEGATIVE) mg/dL Urine Glucose (UA) (NEGATIVE) mg/dL Urine Ketones (NEGATIVE) mg/dL Urine Occult Blood (NEGATIVE) Urine Nitrite (NEGATIVE) Urine Bilirubin (NEGATIVE) Urine Urobilinogen (0.2-1.0) EU/dL Ur Leukocyte Esterase (NEGATIVE) Urine RBC (0-5) Urine WBC (0-5) Ur Epithelial Cells Amorphous Sediment Urine Bacteria Urine Mucus 02/20/19 02/20/19 02/20/19 Range/Units 10:44 10:44 19:30 WBC (4.5-11.0) K/uL RBC (3.30-5.50) M/uL Hgb (12.0-15.0) g/dL Hct (36.0-48.0) % MCV (80-98) fL MCH (27-31) pg MCHC (32-36) % Plt Count (150-400) K/uL Neut % (Auto) (36-66) % Lymph % (Auto) (24-44) % [place] % (Auto) (2-6) % Eos % (Auto) (2-4) % Baso % (Auto) (0-1) % Sodium (140-148) mmol/L Potassium (3.6-5.2) mmol/L Chloride (100-108) mmol/L Carbon Dioxide (21-32) mmol/L Anion Gap (5.0-14.0) mmol/L BUN (7-18) mg/dL Creatinine (0.6-1.0) mg/dL Est Cr Clr Drug Dosing mL/min Estimated GFR (MDRD) (>60) Glucose (74-106) mg/dL Calcium (8.5-10.1) mg/dL Magnesium 2.1 (1.8-2.4) mg/dL Total Bilirubin (0.2-1.0) mg/dL AST (15-37) U/L ALT (12-78) U/L Alkaline Phosphatase (46-116) U/L Troponin I < 0.017 (0.000-0.056) ng/mL Total Protein (6.4-8.2) g/dL Albumin (3.4-5.0) g/dL Globulin (2.3-3.5) g/dL Albumin/Globulin Ratio (1.2-2.2) TSH, Ultra Sensitive (0.358-3.740) uIU/mL Urine Color Yellow (YELLOW) Urine Appearance Slightly cloudy A (CLEAR) Urine pH 6.0 (5.0-8.0) Ur Specific [place] >= 1.030 (1.008-1.030) Urine Protein Negative (NEGATIVE) mg/dL Urine Glucose (UA) Negative (NEGATIVE) mg/dL Urine Ketones Negative (NEGATIVE) mg/dL Urine Occult Blood Negative (NEGATIVE) Urine Nitrite Positive H (NEGATIVE) Urine Bilirubin Negative (NEGATIVE) Urine Urobilinogen 0.2 (0.2-1.0) EU/dL Ur Leukocyte Esterase Small H (NEGATIVE) Urine RBC 0-5 (0-5) Urine WBC 20-30 H (0-5) Ur Epithelial Cells Rare Amorphous Sediment Not seen Urine Bacteria Many Urine Mucus Few 02/21/19 02/21/19 Range/Units 05:40 05:40 WBC 6.5 (4.5-11.0) K/uL RBC 4.49 (3.30-5.50) M/uL Hgb 13.8 (12.0-15.0) g/dL Hct 41.0 (36.0-48.0) % MCV 91 (80-98) fL MCH 31 (27-31) pg MCHC 34 (32-36) % Plt Count 251 (150-400) K/uL Neut % (Auto) 73 H (36-66) % Lymph % (Auto) 15 L (24-44) % Brew[place] % (Auto) 10 H (2-6) % Eos % (Auto) 2 (2-4) % Baso % (Auto) 0 (0-1) % Sodium 139 L (140-148) mmol/L Potassium 4.4 (3.6-5.2) mmol/L Chloride 104 (100-108) mmol/L Carbon Dioxide 28 (21-32) mmol/L Anion Gap 11.4 (5.0-14.0) mmol/L BUN 10 (7-18) mg/dL Creatinine 0.8 (0.6-1.0) mg/dL Est Cr Clr Drug Dosing 46.34 mL/min Estimated GFR (MDRD) > 60 (>60) Glucose 99 (74-106) mg/dL Calcium 8.2 L (8.5-10.1) mg/dL Magnesium 2.1 (1.8-2.4) mg/dL Total Bilirubin (0.2-1.0) mg/dL AST (15-37) U/L ALT (12-78) U/L Alkaline Phosphatase (46-116) U/L Troponin I (0.000-0.056) ng/mL Total Protein (6.4-8.2) g/dL Albumin (3.4-5.0) g/dL Globulin (2.3-3.5) g/dL Albumin/Globulin Ratio (1.2-2.2) TSH, Ultra Sensitive (0.358-3.740) uIU/mL Urine Color (YELLOW) Urine Appearance (CLEAR) Urine pH (5.0-8.0) Ur Specific [place] (1.008-1.030) Urine Protein (NEGATIVE) mg/dL Urine Glucose (UA) (NEGATIVE) mg/dL Urine Ketones (NEGATIVE) mg/dL Urine Occult Blood (NEGATIVE) Urine Nitrite (NEGATIVE) Urine Bilirubin (NEGATIVE) Urine Urobilinogen (0.2-1.0) EU/dL Ur Leukocyte Esterase (NEGATIVE) Urine RBC (0-5) Urine WBC (0-5) Ur Epithelial Cells Amorphous Sediment Urine Bacteria Urine Mucus Wai Results Last 24 Hours: Microbiology 02/20/19 20:00 Urine Culture - Preliminary Urine, Clean Catch Med Orders - Current: Current Medications Acetaminophen (Tylenol) 650 mg PO Q4H PRN PRN Reason: Pain (Mild 1-3)/fever Anastrozole (Arimidex) 1 mg PO BEDTIME [facility] Last Admin: 02/20/19 21:31 Dose: 1 mg Aspirin (Aspirin) 81 mg PO BEDTIME [facility] Last Admin: 02/20/19 21:31 Dose: 81 mg Diltiazem HCl (Cardizem) 30 mg PO Q6HR [facility] Last Admin: 02/21/19 03:06 Dose: 30 mg Diltiazem HCl (Cardizem Cd) 240 mg PO DAILY [facility] Last Admin: 02/21/19 09:09 Dose: 240 mg Enoxaparin Sodium (Lovenox) 40 mg SUBCUT Q24H [facility] Last Admin: 02/20/19 15:06 Dose: 40 mg Ceftriaxone Sodium 1 gm/ (Sodium Chloride) 50 mls @ 100 mls/hr IV Q24H [facility] Last Admin: 02/20/19 20:46 Dose: 100 mls/hr Ondansetron HCl (Zofran) 4 mg IV Q4H PRN PRN Reason: Nausea/Vomiting Polyethylene Glycol (Miralax) 17 gm PO DAILY PRN PRN Reason: Constipation Sodium Chloride (Saline Flush) 10 ml FLUSH ASDIRECTED PRN PRN Reason: Keep Vein Open Discontinued Medications Diltiazem HCl (Diltiazem) 10 mg IVPUSH ONETIME ONE Stop: 02/20/19 13:18 Last Admin: 02/20/19 13:29 Dose: 10 mg Diltiazem HCl (Cardizem Cd) 180 mg PO DAILY [facility] Diltiazem HCl (Cardizem) 30 mg PO Q6HR [facility] Last Admin: 02/20/19 15:06 Dose: 30 mg Diltiazem HCl (Cardizem) 30 mg PO Q8HR [facility] Last Admin: 02/20/19 21:30 Dose: 30 mg Diltiazem HCl (Diltiazem) 5 mg IVPUSH ONETIME ONE Stop: 02/20/19 22:16 Last Admin: 02/20/19 22:27 Dose: 5 mg Diltiazem HCl 125 mg/ Sodium (Chloride) 125 mls @ 5 mls/hr IV TITRATE [facility]; Protocol Sodium Chloride (Saline Flush) 10 ml FLUSH ASDIRECTED PRN PRN Reason: Keep Vein Open Last Admin: 02/20/19 13:01 Dose: 10 ml - Exam Quality Assessment: DVT Prophylaxis General: Alert, Oriented, Cooperative, No Acute Distress Lungs: Clear to Auscultation, Normal Respiratory Effort Cardiovascular: Regular Rate, Regular Rhythm, No Murmurs GI/Abdominal Exam: Soft, Non-Tender, No Organomegaly, No Distention Extremities: Non-Tender, No Pedal Edema Sepsis Event Note - Evaluation Sepsis Screening Result: No Definite Risk - Focused Exam Vital Signs: Vital Signs Temp Pulse Pulse Resp BP BP Pulse Ox 02/21/19 09:09 71 114/58 L 02/21/19 08:00 98 F 67 14 114/58 L 96 02/21/19 06:00 58 L 18 113/50 L 93 L 02/21/19 04:00 98.1 F 56 L 16 108/54 L 93 L 02/21/19 02:00 68 16 115/62 93 L 02/21/19 00:00 98.0 F 55 L 16 110/61 91 L 02/20/19 23:00 68 19 117/51 L 92 L 02/20/19 22:00 67 14 151/79 H 97 Date Exam was Performed: 02/21/19 Time Exam was Performed: 09:18 - Problem List Review Problem List Initiated/Reviewed/Updated: Yes - My Orders Last 24 Hours: My Active Orders 02/20/19 13:46 Resuscitation Status Routine 02/20/19 14:14 Patient Status [ADT] Routine Ambulate [RC] QID Cardiac Monitoring [RC] Q6H Height and Weight [RC] DAILY Intake and Output [RC] QSHIFT Notify Provider Vital Signs [RC] ASDIRECTED Oxygen Therapy [RC] PRN Up With Assistance [RC] ASDIRECTED Up to Chair [RC] QID Vital Signs [RC] Q2H Acetaminophen [Tylenol] 650 mg PO Q4H PRN Ondansetron [Zofran] 4 mg IV Q4H PRN Polyethylene Glycol 3350 [MiraLAX] 17 gm PO DAILY PRN Sodium Chloride 0.9% [Saline Flush] 10 ml FLUSH ASDIRECTED PRN Saline Lock Insert [OM.PC] Routine 02/20/19 16:00 Enoxaparin [Lovenox] 40 mg SUBCUT Q24H 02/20/19 20:00 CULTURE URINE [RM] Routine cefTRIAXone [Rocephin] 1 gm Sodium Chloride 0.9% [Normal Saline] 50 ml IV Q24H 02/20/19 20:17 Dietary Supplements [RC] BIDMEALS 02/20/19 21:00 Anastrozole [Arimidex] 1 mg PO BEDTIME Aspirin 81 mg PO BEDTIME 02/20/19 Lunch Regular Diet [DIET] 02/21/19 04:00 Diltiazem IR [Cardizem] 30 mg PO Q6HR 02/21/19 08:00 Echo Comp wo Cont [US] Urgent 02/21/19 09:00 Diltiazem [Cardizem CD] 240 mg PO DAILY - Plan Plan:: ASSESSMENT AND PLAN AV REENTRANT TACHYCARDIA-previous history, occurring more frequently during the past month and almost continuous during the last 24 hours. She has been on very low-dose beta-syd and has been intolerant of attempts at increasing dose because of bradycardia and fatigue. Diltiazem over the past 10 months has worked relatively well until recently. Was given a 10 mg dose of IV diltiazem while in the emergency department and has remained in sinus rhythm, with only rare short bursts of tachycardia. -Increase diltiazem CD to 240 mg daily -Consider use of digoxin if she requires further rate control, because of lower blood pressures -Discontinue metoprolol -Outpatient referral to EP -Echocardiogram today MAINTENANCE ISSUES -DVT prophylaxis; Lovenox 40 mg subcu daily -GI prophylaxis; not indicated -Coles catheter; not indicated -Nutrition; regular diet -Nicotine dependence; not required CODE STATUS-FULL CODE ADMISSION STATUS-patient will be admitted to inpatient status, expect at least a 2 night hospital stay for evaluation and management of problems as outlined above. At the time of this admission I do not reasonably expected evaluation and management of this problem will require more than a 96 hour hospital stay. DISPOSITION-anticipate discharge to home after the hospital stay. PRIMARY CARE PROVIDER-Dr. Hines
[2019-02-21] MEDS: Enoxaparin 40 MG/0.4 ML Syringe SUBCUT SCH (15:54)
[2019-02-21] MEDS: cefTRIAXone 1 GM in Sodium Chloride 0.9% 50 ML IV SCH (20:29)
[2019-02-21] MEDS: Anastrozole 1 MG Tab PO SCH (20:29)
[2019-02-21] MEDS: Aspirin 81 MG Tab.Chew PO SCH (20:29)
[2019-02-21] MEDS ORDERED: Diltiazem 25 MG/5 ML SDV IVPUSH ONE (22:18)
[2019-02-21] MEDS ORDERED: Diltiazem IR 30 MG Tab PO ONE (22:19)
[2019-02-21] MEDS ORDERED: Melatonin 3 MG Tab PO PRN (22:23)
[2019-02-21 22:46] VITALS: PULSE 56
[2019-02-22 07:37] VITALS: BP 126/61
--- NOTE | 2019-02-22 09:12 | PCM.DCSUM1 ---
Discharge Summary - Hospital Course Brief History: Ms. Yo is an 83-year-old woman who was admitted through the emergency department for management of paroxysmal AV nette reentrant tachycardia. - Discharge Data Discharge Date: 02/22/19 Discharge Disposition: Home, Self-Care 01 Condition: Good - Referral to Home Health Primary Care Physician: Boom Hines MD - Discharge Diagnosis/Problem(s) (1) UTI (urinary tract infection) SNOMED Code(s): 10671658 ICD Code: N39.0 - URINARY TRACT INFECTION, SITE NOT SPECIFIED Status: Acute Current Visit: Yes (2) AVNRT (AV nette re-entry tachycardia) SNOMED Code(s): 629643274, 309850169, 761056895 ICD Code: I47.1 - SUPRAVENTRICULAR TACHYCARDIA Status: Acute Current Visit: No (3) Essential hypertension SNOMED Code(s): 44803625 ICD Code: I10 - ESSENTIAL (PRIMARY) HYPERTENSION Status: Chronic Current Visit: No - Patient Summary/Data Hospital Course: Ms. Yo is a 89-year-old woman who was admitted through the emergency department with weakness and lightheadedness secondary to recurrent episodes of AV reentrant tachycardia. She has had a previous history of atrial tachycardia with intermittent exacerbations. Previously had been well controlled with beta- syd therapy, but she was intolerant of increased doses of beta-syd because of bradycardia. Last spring she was started on diltiazem and control has been fairly good until the past month. She has had recurrent episodes that have persisted despite increasing dose of her diltiazem. Over the last 2 days the episodes have been very frequent occurring several times an hour and while in the emergency department return to sinus rhythm is very short-lived. She feels weak and lightheaded, denies any symptoms of chest pain or pressure or shortness of breath. On admission she was given 10 mg of IV diltiazem and the tachycardia essentially resolved. Over the next 24 hours she was given increased doses of oral diltiazem and occasional dose of IV to maintain control of her tacky dysrhythmia. By the time of discharge dysrhythmia was well controlled with increased dose of diltiazem and she will be discharged home on diltiazem CD 180 mg twice daily. Echocardiogram was obtained and did show biatrial enlargement, normal left ventricular function, and only mild to moderate valvular disease. She was found to have a urinary tract infection during hospitalization and was treated with IV Rocephin. Urine culture grew pansensitive E. coli and she will be discharged home with an additional 3 days of cephalexin. Activity will be as tolerated and she will remain on a heart healthy diet. Follow-up appointment will be scheduled with her primary care provider within 1 week. Follow-up appointment will be scheduled as soon as possible with EP cardiology. - Patient Instructions Diet: Heart Healthy Diet Activity: As Tolerated Other/Special Instructions: Please schedule follow-up appointment with primary care provider within 1 week. Please schedule follow-up appointment EP cardiology, Dr. Oropeza, as soon as possible. - Discharge Plan *PRESCRIPTION DRUG MONITORING PROGRAM REVIEWED*: Not Applicable *COPY OF PRESCRIPTION DRUG MONITORING REPORT IN PATIENT KRISTY: Not Applicable Prescriptions/Med Rec: Cephalexin [Keflex] 500 mg PO Q8H #9 capsule Home Medications: Home Meds Calcium Carbonate/Vitamin D2 [Oyster Shell Calcium-Vit D Tab] 200 - 500 mg PO DAILY 12/09/15 [History] Alendronate Sodium [Fosamax] 70 mg PO WEEKLY 12/07/17 [History] Anastrozole [Arimidex] 1 mg PO BEDTIME 12/07/17 [History] Aspirin 81 mg PO BEDTIME 12/07/17 [History] Simvastatin 5 mg PO BEDTIME 12/07/17 [History] Metoprolol Tartrate [Lopressor] 12.5 mg PO DAILY 02/20/19 [History] Cephalexin [Keflex] 500 mg PO Q8H #9 capsule 02/22/19 [Rx] Diltiazem HCl [Cartia Xt] 180 mg PO BID #15 cap.er.24h 02/22/19 [Rx] Referrals: Boom Hines MD [Primary Care Provider] - - Discharge Summary/Plan Comment DC Time >30 min.: No - Patient Data Vitals - Most Recent: Last Vital Signs Temp 97.8 F 02/22/19 07:36 Pulse 56 L 02/21/19 22:00 Resp 12 02/22/19 07:36 BP 126/61 02/22/19 07:36 Pulse Ox 98 02/22/19 07:36 Weight - Most Recent: 137 lb I&O - Last 24 hours: Intake & Output 02/21/19 02/22/19 02/22/19 22:59 06:59 14:59 Intake Total 50 Balance 50 LURDES Results - Last 24 hrs: Microbiology 02/20/19 20:00 Urine Culture - Final Urine, Clean Catch Escherichia Coli Med Orders - Current: Current Medications Acetaminophen (Tylenol) 650 mg PO Q4H PRN PRN Reason: Pain (Mild 1-3)/fever Anastrozole (Arimidex) 1 mg PO BEDTIME [facility] Last Admin: 02/21/19 20:29 Dose: 1 mg Aspirin (Aspirin) 81 mg PO BEDTIME [facility] Last Admin: 02/21/19 20:29 Dose: 81 mg Enoxaparin Sodium (Lovenox) 40 mg SUBCUT Q24H [facility] Last Admin: 02/21/19 15:54 Dose: 40 mg Ceftriaxone Sodium 1 gm/ (Sodium Chloride) 50 mls @ 100 mls/hr IV Q24H [facility] Last Admin: 02/21/19 20:29 Dose: 100 mls/hr Melatonin (Melatonin) 6 mg PO BEDTIME PRN PRN Reason: Insomnia Last Admin: 02/21/19 22:40 Dose: 6 mg Ondansetron HCl (Zofran) 4 mg IV Q4H PRN PRN Reason: Nausea/Vomiting Polyethylene Glycol (Miralax) 17 gm PO DAILY PRN PRN Reason: Constipation Sodium Chloride (Saline Flush) 10 ml FLUSH ASDIRECTED PRN PRN Reason: Keep Vein Open Discontinued Medications Diltiazem HCl (Diltiazem) 10 mg IVPUSH ONETIME ONE Stop: 02/20/19 13:18 Last Admin: 02/20/19 13:29 Dose: 10 mg Diltiazem HCl (Cardizem Cd) 180 mg PO DAILY [facility] Diltiazem HCl (Cardizem) 30 mg PO Q6HR [facility] Last Admin: 02/20/19 15:06 Dose: 30 mg Diltiazem HCl (Cardizem) 30 mg PO Q8HR [facility] Last Admin: 02/20/19 21:30 Dose: 30 mg Diltiazem HCl (Diltiazem) 5 mg IVPUSH ONETIME ONE Stop: 02/20/19 22:16 Last Admin: 02/20/19 22:27 Dose: 5 mg Diltiazem HCl (Cardizem) 30 mg PO Q6HR [facility] Last Admin: 02/21/19 10:25 Dose: Not Given Diltiazem HCl (Cardizem Cd) 240 mg PO DAILY [facility] Last Admin: 02/21/19 09:09 Dose: 240 mg Diltiazem HCl (Diltiazem) 5 mg IVPUSH ONETIME ONE Stop: 02/21/19 22:19 Last Admin: 02/21/19 22:33 Dose: 5 mg Diltiazem HCl (Cardizem) 30 mg PO ONETIME ONE Stop: 02/21/19 22:20 Last Admin: 02/21/19 22:40 Dose: 30 mg Diltiazem HCl 125 mg/ Sodium (Chloride) 125 mls @ 5 mls/hr IV TITRATE [facility]; Protocol Sodium Chloride (Saline Flush) 10 ml FLUSH ASDIRECTED PRN PRN Reason: Keep Vein Open Last Admin: 02/20/19 13:01 Dose: 10 ml - Exam General: Reports: Alert, Oriented, Cooperative, No Acute Distress Lungs: Reports: Clear to Auscultation, Normal Respiratory Effort Cardiovascular: Reports: Regular Rate, Regular Rhythm, No Murmurs GI/Abdominal Exam: Soft, Non-Tender, No Organomegaly, No Distention
== END 2019-02-22 10:35 | disposition home or self-care (01) | DRG 309 ==
LOC: JP.ED 09:38 → JP.ICU 13:44
PROVIDERS: ADMIT Hospitalist; ATTEND Hospitalist
DX: I49.8 Other specified cardiac arrhythmias (principal); I47.1 Supraventricular tachycardia; N39.0 Urinary tract infection, site not specified; I10 Essential (primary) hypertension; B96.20 Unspecified Escherichia coli [E. coli] as the cause of diseases classified elsewhere; H91.90 Unspecified hearing loss, unspecified ear; H54.7 Unspecified visual loss; E78.00 Pure hypercholesterolemia, unspecified; J45.909 Unspecified asthma, uncomplicated; I34.1 Nonrheumatic mitral (valve) prolapse; G89.29 Other chronic pain; M54.9 Dorsalgia, unspecified; M17.11 Unilateral primary osteoarthritis, right knee; F41.9 Anxiety disorder, unspecified; M85.80 Other specified disorders of bone density and structure, unspecified site; M81.0 Age-related osteoporosis without current pathological fracture; Z85.3 Personal history of malignant neoplasm of breast; Z98.49 Cataract extraction status, unspecified eye; Z90.49 Acquired absence of other specified parts of digestive tract; Z79.82 Long term (current) use of aspirin; Z79.899 Other long term (current) drug therapy; Z88.8 Allergy status to other drugs, medicaments and biological substances; Z90.12 Acquired absence of left breast and nipple
CPT/HCPCS: 36415; 71045; 80053; 83735; 84443; 84484; 85025; 93005; 93010; J3490; 80048; 81001; 87086; 87088; 87186; 93306; 96374; 99285-25; A9270-GY; J0696; J1650; J7050

== ENCOUNTER 2021-03-07 12:21 | Emergency (ER) | payer MEDICARE, BC ==
--- NOTE | 2021-03-07 14:05 | EDM.PDOC ---
ED HPI GENERAL MEDICAL PROBLEM - General Chief Complaint: Gastrointestinal Problem Stated Complaint: RECTAL BLEEDING Time Seen by Provider: 03/07/21 13:51 Source of Information: Reports: Patient, Family, RN Notes Reviewed History Limitations: Reports: No Limitations - History of Present Illness INITIAL COMMENTS - FREE TEXT/NARRATIVE: 85-year-old female presents emergency department today complaint of bright red blood per rectum, she states she has been dealing with some constipation had used Dulcolax suppository after this she had bright red blood per rectum she did admit to having a hard stool which was very uncomfortable blood did fill the toilet she is still having some ongoing blood on her pad in her underwear. She denies any lightheadedness or feelings of passing out. Has had a colonoscopy in the past in the past which per her report was unremarkable Lower Abdomen Pain Score (Numeric/FACES): 2 - Related Data Allergies Allergy/AdvReac Type Severity Reaction Status Date / Time citalopram [From Celexa] Allergy Cannot Verified 02/20/19 09:56 Remember Home Meds: Home Meds Calcium Carbonate/Vitamin D2 [Oyster Shell Calcium-Vit D Tab] 200 - 500 mg PO DAILY 12/09/15 [History] Alendronate Sodium [Fosamax] 70 mg PO WEEKLY 12/07/17 [History] Aspirin 81 mg PO BEDTIME 12/07/17 [History] dilTIAZem HCL [Cartia Xt] 180 mg PO BID #15 cap.er.24h 02/22/19 [Rx] Pravastatin [Pravachol] 40 mg PO DAILY 09/07/20 [History] Past Medical History HEENT History: Reports: Cataract, Hard of Hearing, Impaired Vision Cardiovascular History: Reports: Arrhythmia, High Cholesterol, Hypertension Other Cardiovascular History: MV prolapse. 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 (10/2017) Psychiatric History: Reports: Anxiety Endocrine/Metabolic History: Reports: Osteopenia, Osteoporosis Hematologic History: Reports: Anemia, Blood Transfusion(s) Oncologic (Cancer) History: Reports: Breast - Infectious Disease History Infectious Disease History: Reports: Chicken Pox, Measles - Past Surgical History Head Surgeries/Procedures: Reports: None HEENT Surgical History: Reports: Cataract Surgery Cardiovascular Surgical History: Reports: None Respiratory Surgical History: Reports: None GI Surgical History: Reports: Appendectomy, Colonoscopy, EGD Female Surgical History: Reports: Mastectomy Other Female Surgeries/Procedures: left side mastectomy Endocrine Surgical History: Reports: None Musculoskeletal Surgical History: Reports: None Oncologic Surgical History: Reports: Biopsy of Breast, Mastectomy, Other (See Below) Other Oncologic Surgeries/Procedures: L mastectomy (~2016) Dermatological Surgical History: Reports: None Social & Family History - Tobacco Use Tobacco Use Status *Q: Never Tobacco User - Caffeine Use Caffeine Use: Reports: Coffee ED ROS GENERAL - Review of Systems Review Of Systems: See Below Constitutional: Reports: No Symptoms Respiratory: Reports: No Symptoms Cardiovascular: Reports: No Symptoms GI/Abdominal: Reports: Bloody Stool ED EXAM, GI/ABD - Physical Exam Exam: See Below Exam Limited By: No Limitations General Appearance: Alert, WD/WN, No Apparent Distress Respiratory/Chest: No Respiratory Distress, Lungs Clear, Normal Breath Sounds, No Accessory Muscle Use, Chest Non-Tender Cardiovascular: Regular Rate, Rhythm, No Murmur GI/Abdominal Exam: Soft, Non-Tender Rectal (Female) Exam: Normal Rectal Tone, Bloody Stool, Rectal Fissure Course - Vital Signs Last Recorded V/S: Last Vital Signs Temp 98.2 F 03/07/21 13:44 Pulse 75 03/07/21 14:11 Resp 14 03/07/21 13:44 BP 136/93 H 03/07/21 14:11 Pulse Ox 97 03/07/21 13:44 - Orders/Labs/Meds Labs: Laboratory Tests 03/07/21 Range/Units 14:14 Hgb 14.4 (11.2-15.5) Departure - Departure Time of Disposition: 14:21 Disposition: Home, Self-Care 01 Condition: Fair Clinical Impression: Rectal fissure, BRBPR (bright red blood per rectum) - Discharge Information Instructions: Rectal Bleeding, Anal Fissure, Adult, [id number] Referrals: Boom Hines MD [Primary Care Provider] - Forms: ED Department Discharge Additional Instructions: Try the Nitropaste apply this to the area until clear this should clear up within a couple of days, please followup with your primary care provider in 3-5 days if not better, please call return to the emergency department with worsening of symptoms. Sepsis Event Note (ED) - Evaluation Sepsis Screening Result: No Definite Risk - Focused Exam Vital Signs: Vital Signs Temp Pulse Resp BP Pulse Ox 03/07/21 14:11 75 136/93 H 03/07/21 13:44 98.2 F 78 14 161/68 H 97 03/07/21 13:18 98.2 F 78 14 161/68 H 97 - Assessment/Plan Plan: Assessment Acuity = acute Site and laterality = rectal fissure Etiology = probably related to trauma with a hard stool Manifestations = none Location of injury = Home Lab values = hemoglobin 14.4 Plan Prescription written for Nitropaste 0.2% she is can apply rectally until the area heals up follow-up primary care 3 to 5 days if not better This note was dictated using [employer] voice recognition software please call with any questions on syntax or grammar.
[2021-03-07 14:11] VITALS: BP 136/93; PULSE 75
== END 2021-03-07 14:33 | disposition home or self-care (01) ==
LOC: JP.ED 12:21
DX: K62.5 Hemorrhage of anus and rectum (principal); Z88.8 Allergy status to other drugs, medicaments and biological substances; Z79.899 Other long term (current) drug therapy; Z90.49 Acquired absence of other specified parts of digestive tract
CPT/HCPCS: 36415; 85018; 99283

== ENCOUNTER 2021-11-08 17:53 | Observation (INO) | payer MEDICARE, BC ==
[2021-11-08] MEDS: Sodium Chloride 0.9% 500 ML IV ONE (18:25)
[2021-11-08] MEDS: Sodium Chloride 0.9% 10 ML Syringe FLUSH PRN (18:26)
[2021-11-08 18:33] LABS: ESTIMATED GFR 72 mL/min (>60)
[2021-11-08 18:36] LABS: TROPONIN I HIGH SENSITIVITY < 4.0 pg/mL (<=60.3)
[2021-11-08] MEDS: Iopamidol 755 Mg/ML 100 ML Bottle IV ONE (21:32)
[2021-11-08] MEDS: Sodium Chloride 0.9% 100 ML IV ONE (21:33)
[2021-11-09 10:30] VITALS: BP 135/58; PULSE 69
== END 2021-11-09 12:15 | disposition home or self-care (01) ==
LOC: JP.ED 17:53 → JP.ICU 11-09 00:35
PROVIDERS: ADMIT Family Medicine; ATTEND Hospitalist
DX: G45.9 Transient cerebral ischemic attack, unspecified (principal); R47.01 Aphasia; R47.81 Slurred speech; I48.91 Unspecified atrial fibrillation; E78.00 Pure hypercholesterolemia, unspecified; I10 Essential (primary) hypertension; M81.0 Age-related osteoporosis without current pathological fracture; M85.80 Other specified disorders of bone density and structure, unspecified site; Z98.890 Other specified postprocedural states; Z20.822 Contact with and (suspected) exposure to COVID-19; Z88.8 Allergy status to other drugs, medicaments and biological substances; Z79.899 Other long term (current) drug therapy; Z79.82 Long term (current) use of aspirin
CPT/HCPCS: 36415; 70450; 70496; 70498; 80053; 84484; 85025; 85610; 85730; 93005; 99285; C8929; G0378; J3490; J7040; Q9967; U0002

== ENCOUNTER 2023-02-24 09:42 | Emergency (ER) | payer MEDICARE, BC ==
[2023-02-24 10:02] VITALS: BP 137/62; PULSE 99
[2023-02-24] MEDS ORDERED: Piperacillin/Tazobactam 4.5 GM in Sodium Chloride 0.9% 100 ML IV ONE (10:59)
[2023-02-24] MEDS ORDERED: metroNIDAZOLE 250 MG Tab PO ONE (11:29)
== END 2023-02-24 12:49 | disposition home or self-care (01) ==
LOC: JP.ED 09:42
DX: K57.52 Diverticulitis of both small and large intestine without perforation or abscess without bleeding (principal); I10 Essential (primary) hypertension; E78.00 Pure hypercholesterolemia, unspecified; Z79.82 Long term (current) use of aspirin; M19.90 Unspecified osteoarthritis, unspecified site; Z79.899 Other long term (current) drug therapy
CPT/HCPCS: 74176; 96365; 99285; A9270; J2543; J3490

== ENCOUNTER 2023-08-30 13:41 | Emergency (ER) | payer MEDICARE, BC ==
[2023-08-30 14:12] VITALS: BP 146/52; PULSE 69
[2023-08-30 15:15] LABS: CREATININE 0.9 mg/dL (0.6-1.0); EST CRCL DRUG DOSING (CG) 37.92 mL/min
== END 2023-08-30 15:34 | disposition home or self-care (01) ==
LOC: JP.ED 13:41
DX: U07.1 COVID-19 (principal); J06.9 Acute upper respiratory infection, unspecified; I10 Essential (primary) hypertension; E78.00 Pure hypercholesterolemia, unspecified; Z88.8 Allergy status to other drugs, medicaments and biological substances; Z79.82 Long term (current) use of aspirin; Z79.899 Other long term (current) drug therapy
CPT/HCPCS: 36415; 82565; 99284; U0002

== ENCOUNTER 2023-09-01 07:46 | Inpatient (IN) | payer MEDICARE, BC ==
[2023-09-01 08:14] LABS: BASOPHILS ABSOLUTE AUTO 0.01 K/uL (0.00-0.10); BASOPHILS PERCENT AUTO 0.3 % (0.1-1.3); HEMATOCRIT 40.3 % (34.3-46.0); HEMOGLOBIN 14.7 g/dL (11.2-15.5); IMMATURE GRAN ABSOLUTE AUTO 0.02 K/uL (0.00-0.23); IMMATURE GRAN PERCENT AUTO 0.5 % (0.0-0.7); LYMPHOCYTES ABSOLUTE AUTO 0.17 K/uL (0.8-3.3); LYMPHOCYTES PERCENT AUTO 4.6 % (11.4-47.7); MEAN CORPUSCULAR HGB CONC 36.5 g/dL (31.6-35.5); MEAN CORPUSCULAR VOLUME 87.6 fL (81.4-99.0); MONOCYTES ABSOLUTE AUTO 0.06 K/uL (0.20-0.90); MONOCYTES PERCENT AUTO 1.6 % (3.3-12.6); PLATELET COUNT,PLT 142 K/uL (130-375); WHITE BLOOD CELL COUNT,WBC 3.7 K/uL (3.2-11.0)
[2023-09-01 08:39] LABS: ALANINE AMINOTRANSFERASE,ALT 29 U/L (12-78); ALBUMIN 3.2 g/dL (3.4-5.0); ALKALINE PHOSPHATASE 67 U/L (46-116); ASPARTATE AMNIOTRANSFERASE,AST 60 U/L (15-37); BILIRUBIN TOTAL 0.7 mg/dL (0.2-1.0); BLOOD UREA NITROGEN,BUN 13 mg/dL (7-18); CARBON DIOXIDE,CO2 23 mmol/L (21-32); CHLORIDE,CL 98 mmol/L (100-108); CREATINE KINASE,CK 77 U/L (26-192); CREATININE 1.1 mg/dL (0.6-1.0); EST CRCL DRUG DOSING (CG) 30.38 mL/min; ESTIMATED GFR 48 mL/min (>60); GLUCOSE RANDOM 114 mg/dL (74-106); INR 1.2; MAGNESIUM 1.6 mg/dL (1.8-2.4); POTASSIUM,K 3.4 mmol/L (3.6-5.2); PROTEIN TOTAL,TP 6.5 g/dL (6.4-8.2); PROTHROMBIN TIME 12.3 sec (9.2-10.6); PTT,PARTIAL THROMBOPLSTIN TIME 27.9 sec (21.8-27.3); SODIUM,NA 133 mmol/L (140-148); TSH ULTRASENSITIVE 1.612 uIU/mL (0.358-3.740)
[2023-09-01 08:42] LABS: ANION GAP 15.4 mmol/L (5.0-14.0)
[2023-09-01 08:44] LABS: TROPONIN I HIGH SENSITIVITY 87.5 pg/mL (<=60.3)
[2023-09-01] MEDS: Acetaminophen 500 MG Tab PO ONE (08:55)
[2023-09-01] MEDS ORDERED: Sodium Chloride 0.9% 10 ML Syringe FLUSH PRN (09:07)
[2023-09-01] MEDS ORDERED: cefTRIAXone 1 GM in Sodium Chloride 0.9% 50 ML IV ONE (09:07)
[2023-09-01 09:09] LABS: APPEARANCE,URINE SLIGHTLY CLOUDY (CLEAR); BILIRUBIN,URINE SMALL (NEGATIVE); COLOR,URINE YELLOW (YELLOW); GLUCOSE,URINE NEGATIVE (NEGATIVE); KETONES,URINE 80 mg/dL (NEGATIVE); LEUKOCYTE ESTERASE,URINE NEGATIVE (NEGATIVE); NITRITE,URINE NEGATIVE (NEGATIVE); OCCULT BLOOD,URINE TRACE-INTACT (NEGATIVE); PH,URINE 5.5 (5.0-8.0); PROTEIN,URINE 30 mg/dL (NEGATIVE); UROBILINOGEN,URINE 0.2 EU/dL (0.2-1.0)
[2023-09-01 09:16] LABS: AMORPHOUS SEDIMENT,URINE MODERATE; BACTERIA,URINE RARE; EPITHELIAL CELLS,URINE NOT SEEN; MUCUS,URINE NOT SEEN; RBC,URINE 0-5 (0-5); WBC,URINE NOT SEEN (0-5)
[2023-09-01] MEDS: Sodium Chloride 0.9% 1,000 ML IV ONE (09:57)
[2023-09-01 11:01] LABS: INFLUENZA A NAA NEGATIVE (NEGATIVE); INFLUENZA B NAA NEGATIVE (NEGATIVE); RESPIRATORY SYNCYTIAL VIR NAA NEGATIVE (NEGATIVE)
[2023-09-01 11:05] LABS: CORONAVIRUS COVID-19 NAA POSITIVE (NEGATIVE)
[2023-09-01] MEDS: Norepinephrine Bit/D5W Premix 4 MG in Premix Bag 1 BAG IV SCH ×2 (11:09→14:43)
[2023-09-01] MEDS: Sodium Chloride 0.9% 1,000 ML IV SCH ×3 (11:16→21:56)
[2023-09-01] MEDS: cefTRIAXone 1 GM in Sodium Chloride 0.9% 50 ML IV ONE (12:01)
[2023-09-01] MEDS ORDERED: Vancomycin 1 GM SDV IV SCH (13:30)
[2023-09-01] MEDS ORDERED: Polyethylene Glycol 3350 Powder 17 GM Packet PO PRN (13:30)
[2023-09-01] MEDS: Sodium Chloride 0.9% 100 ML IV SCH (14:11)
[2023-09-01] MEDS: Iopamidol 612 MG/ML 100 ML Bottle IV PRN (14:11)
[2023-09-01] MEDS: Sodium Chloride 0.9% 10 ML Syringe FLUSH PRN (14:12)
[2023-09-01] MEDS: Enoxaparin 40 MG/0.4 ML Syringe SUBCUT SCH (14:28)
[2023-09-01] MEDS: Levofloxacin/Dextrose 5%-Water 750 MG in Premix Bag 1 BAG IV SCH (14:28)
[2023-09-01] MEDS: Sodium Chloride 0.9% 10 ML SDV FLUSH ONE (14:28)
[2023-09-01] MEDS: Dexamethasone 4 MG/ML SDV IVPUSH SCH (16:08)
[2023-09-01] MEDS: REMDESIVIR 200 MG in Sodium Chloride 0.9% 250 ML IV ONE (16:09)
[2023-09-01] MEDS: Aspirin 81 MG Tab.Chew PO SCH (21:38)
[2023-09-01] MEDS: Pravastatin 20 MG Tab PO SCH (21:39)
[2023-09-01] MEDS: Acetaminophen 325 MG Tab PO PRN (21:39)
[2023-09-02] MEDS: Melatonin 3 MG Tab PO PRN (01:32)
[2023-09-02 05:35] LABS: HEMATOCRIT 33.7 % (34.3-46.0); HEMOGLOBIN 12.4 g/dL (11.2-15.5); MEAN CORPUSCULAR HEMOGLOBIN 31.6 pg (31.6-35.5); MEAN CORPUSCULAR HGB CONC 36.8 g/dL (31.6-35.5); MEAN CORPUSCULAR VOLUME 85.8 fL (81.4-99.0); RED BLOOD CELL COUNT 3.93 M/uL (3.77-5.24); WHITE BLOOD CELL COUNT,WBC 18.7 K/uL (3.2-11.0)
[2023-09-02 05:54] LABS: A/G RATIO 0.9 (1.2-2.2); ALANINE AMINOTRANSFERASE,ALT 35 U/L (12-78); ALBUMIN 2.5 g/dL (3.4-5.0); ALKALINE PHOSPHATASE 43 U/L (46-116); ASPARTATE AMNIOTRANSFERASE,AST 54 U/L (15-37); BILIRUBIN TOTAL 0.5 mg/dL (0.2-1.0); BLOOD UREA NITROGEN,BUN 15 mg/dL (7-18); CARBON DIOXIDE,CO2 20 mmol/L (21-32); CHLORIDE,CL 104 mmol/L (100-108); EST CRCL DRUG DOSING (CG) 33.82 mL/min; ESTIMATED GFR 54 mL/min (>60); GLUCOSE RANDOM 102 mg/dL (74-106); MAGNESIUM 1.5 mg/dL (1.8-2.4); POTASSIUM,K 3.7 mmol/L (3.6-5.2); PROTEIN TOTAL,TP 5.3 g/dL (6.4-8.2); SODIUM,NA 136 mmol/L (140-148)
[2023-09-02 05:56] LABS: ANION GAP 15.7 mmol/L (5.0-14.0); CALCIUM 6.7 mg/dL (8.5-10.1)
[2023-09-02] MEDS: Magnesium Oxide 400 MG Tab PO SCH (09:06)
[2023-09-02] MEDS: Calcium Gluconate 2 GM in Sodium Chloride 0.9% 100 ML IV ONE ×2 (09:07→17:12)
[2023-09-02] MEDS: Magnesium Sulfate/Water 2 GM in Premix Bag 1 BAG IV SCH (11:33)
[2023-09-02] MEDS: Ondansetron 4 MG/2 ML SDV IV PRN (15:03)
[2023-09-02] MEDS: REMDESIVIR 100 MG in Sodium Chloride 0.9% 100 ML IV SCH (15:07)
[2023-09-03 06:04] LABS: HEMATOCRIT 36.4 % (34.3-46.0); HEMOGLOBIN 13.3 g/dL (11.2-15.5); MEAN CORPUSCULAR HEMOGLOBIN 31.2 pg (31.6-35.5); MEAN CORPUSCULAR HGB CONC 36.5 g/dL (31.6-35.5); MEAN CORPUSCULAR VOLUME 85.4 fL (81.4-99.0); RED BLOOD CELL COUNT 4.26 M/uL (3.77-5.24); WHITE BLOOD CELL COUNT,WBC 16.4 K/uL (3.2-11.0)
[2023-09-03 06:24] LABS: ANION GAP 8.9 mmol/L (5.0-14.0); CALCIUM 7.7 mg/dL (8.5-10.1); CREATININE 0.9 mg/dL (0.6-1.0); EST CRCL DRUG DOSING (CG) 37.58 mL/min; POTASSIUM,K 4.2 mmol/L (3.6-5.2); VANCOMYCIN RANDOM 8.7 ug/mL (0.0-50.0)
[2023-09-03] MEDS: Diltiazem 180 MG Cap.CD PO SCH (08:44)
[2023-09-03] MEDS: Meropenem 1 GM in Sodium Chloride 0.9% 100 ML IV SCH (08:44)
[2023-09-04 05:48] LABS: HEMATOCRIT 38.3 % (34.3-46.0); MEAN CORPUSCULAR HEMOGLOBIN 31.3 pg (31.6-35.5); MEAN CORPUSCULAR HGB CONC 36.6 g/dL (31.6-35.5); MEAN CORPUSCULAR VOLUME 85.5 fL (81.4-99.0); RED BLOOD CELL COUNT 4.48 M/uL (3.77-5.24); WHITE BLOOD CELL COUNT,WBC 10.9 K/uL (3.2-11.0)
[2023-09-04 06:03] LABS: CALCIUM 7.7 mg/dL (8.5-10.1); CREATININE 0.8 mg/dL (0.6-1.0); EST CRCL DRUG DOSING (CG) 42.28 mL/min; POTASSIUM,K 4.3 mmol/L (3.6-5.2)
[2023-09-04 06:07] LABS: ANION GAP 11.3 mmol/L (5.0-14.0)
[2023-09-04 11:38] VITALS: BP 109/64; PULSE 88
[2023-09-04] MEDS: Ertapenem 1 GM in Sodium Chloride 0.9% 50 ML IV SCH (14:20)
== END 2023-09-04 15:45 | disposition home or self-care (01) | DRG 871 ==
LOC: JP.ED 07:46 → JP.ICU 11:58
PROVIDERS: ADMIT Hospitalist; ATTEND Internal Medicine
PROC: 3E033XZ Introduction of Vasopressor into Peripheral Vein, Percutaneous Approach (ICD-10-PCS; principal; 2023-09-01)
PROC: 3E03329 Introduction of Other Anti-infective into Peripheral Vein, Percutaneous Approach (ICD-10-PCS; 2023-09-01)
PROC: XW033E5 Introduction of Remdesivir Anti-infective into Peripheral Vein, Percutaneous Approach, New Technology Group 5 (ICD-10-PCS; 2023-09-01)
PROC: 3E0333Z Introduction of Anti-inflammatory into Peripheral Vein, Percutaneous Approach (ICD-10-PCS; 2023-09-03)
DX: A41.9 Sepsis, unspecified organism (principal); A41.51 Sepsis due to Escherichia coli [E. coli]; R65.21 Severe sepsis with septic shock; U07.1 COVID-19; N30.00 Acute cystitis without hematuria; Z16.12 Extended spectrum beta lactamase (ESBL) resistance; E78.00 Pure hypercholesterolemia, unspecified; Z66 Do not resuscitate; M19.90 Unspecified osteoarthritis, unspecified site; M81.0 Age-related osteoporosis without current pathological fracture; I10 Essential (primary) hypertension; D64.9 Anemia, unspecified; F41.9 Anxiety disorder, unspecified; J45.909 Unspecified asthma, uncomplicated; G89.29 Other chronic pain; I48.0 Paroxysmal atrial fibrillation; M54.9 Dorsalgia, unspecified; H91.90 Unspecified hearing loss, unspecified ear; H54.7 Unspecified visual loss; Z88.8 Allergy status to other drugs, medicaments and biological substances; Z79.82 Long term (current) use of aspirin; Z98.49 Cataract extraction status, unspecified eye; Z90.49 Acquired absence of other specified parts of digestive tract; Z90.12 Acquired absence of left breast and nipple; Z79.899 Other long term (current) drug therapy; Z86.73 Personal history of transient ischemic attack (TIA), and cerebral infarction without residual deficits
CPT/HCPCS: 0241U; 36415; 70450; 71045; 71275; 80048; 80053; 80202; 81001; 82330; 82550; 83605; 83735; 83880; 84100; 84145; 84443; 84484; 85025; 85027; 85610; 85730; 86140; 87040; 87077; 87186; 93005; 96365; 96367; 97161; 99285; 99223; 99232; 99238; A9270-GY; J0612; J0696; J1100; J1335; J1650; J1956; J2185; J2405; J3370; J3475; J3490; J7030; J7050; Q9967

== ENCOUNTER 2024-10-24 14:30 | Inpatient (IN) | payer MEDICARE, BC ==
[2024-10-25 05:47] LABS: PLATELET COUNT,PLT 283.0 K/uL (130-375); RED BLOOD CELL COUNT 4.73 M/uL (3.77-5.24); WHITE BLOOD CELL COUNT,WBC 10.7 K/uL (3.2-11.0)
[2024-10-25 06:02] LABS: BLOOD UREA NITROGEN,BUN 9.0 mg/dL (7-18); CARBON DIOXIDE,CO2 29.0 mmol/L (21-32); CHLORIDE,CL 104.0 mmol/L (100-108); CREATININE 0.7 mg/dL (0.6-1.0); EST CRCL DRUG DOSING (CG) 47.05 mL/min; ESTIMATED GFR 83.0 mL/min (>60); GLUCOSE RANDOM 110.0 mg/dL (74-106); POTASSIUM,K 3.9 mmol/L (3.6-5.2); SODIUM,NA 138.0 mmol/L (140-148)
[2024-10-25] MEDS ORDERED: Midazolam 1 MG/ML 2 ML SDV ONE (07:30)
[2024-10-25] MEDS ORDERED: Propofol 200 MG/20 ML SDV ONE (07:30)
[2024-10-25] MEDS ORDERED: fentaNYL 100 MCG/2 ML SDV ONE (07:30)
[2024-10-25] MEDS ORDERED: Lidocaine 1% 2 ML ONE (09:24)
[2024-10-25] MEDS: Diltiazem 180 MG Cap.CD PO SCH (11:12)
[2024-10-25] MEDS: Ondansetron 4 MG Tab.DIS PO PRN (11:23)
[2024-10-25] MEDS: Aspirin 325 MG Tab.EC PO SCH (21:27)
[2024-10-25] MEDS: Nozin Nasal Sanitizer NASBOTH SCH (21:35)
[2024-10-26 05:46] LABS: PLATELET COUNT,PLT 249.0 K/uL (130-375); RED BLOOD CELL COUNT 3.55 M/uL (3.77-5.24); WHITE BLOOD CELL COUNT,WBC 9.3 K/uL (3.2-11.0)
[2024-10-26 05:56] LABS: BLOOD UREA NITROGEN,BUN 9.0 mg/dL (7-18); CARBON DIOXIDE,CO2 25.0 mmol/L (21-32); CHLORIDE,CL 107.0 mmol/L (100-108); CREATININE 0.6 mg/dL (0.6-1.0); EST CRCL DRUG DOSING (CG) 54.89 mL/min; ESTIMATED GFR 86.0 mL/min (>60); GLUCOSE RANDOM 108.0 mg/dL (74-106); POTASSIUM,K 3.9 mmol/L (3.6-5.2); SODIUM,NA 139.0 mmol/L (140-148)
[2024-10-26 12:08] LABS: PLATELET COUNT,PLT 262.0 K/uL (130-375); RED BLOOD CELL COUNT 3.68 M/uL (3.77-5.24); WHITE BLOOD CELL COUNT,WBC 13.0 K/uL (3.2-11.0)
[2024-10-29 12:33] VITALS: BP 129/54; PULSE 76
== END 2024-10-29 13:08 | disposition home health service (06) | DRG 522 ==
LOC: JP.ED 14:30 → JP.MS 16:42
PROVIDERS: ADMIT Student in an Organized Health Care Education/Training Program; ATTEND Internal Medicine
PROC: 0SRS0JZ Replacement of Left Hip Joint, Femoral Surface with Synthetic Substitute, Open Approach (ICD-10-PCS; principal; 2024-10-25 08:02)
DX: S72.002A Fracture of unspecified part of neck of left femur, initial encounter for closed fracture (principal); W01.0XXA Fall on same level from slipping, tripping and stumbling without subsequent striking against object, initial encounter; H91.90 Unspecified hearing loss, unspecified ear; H54.7 Unspecified visual loss; E78.00 Pure hypercholesterolemia, unspecified; Z88.8 Allergy status to other drugs, medicaments and biological substances; Z79.82 Long term (current) use of aspirin; M54.9 Dorsalgia, unspecified; G89.29 Other chronic pain; D64.89 Other specified anemias; M17.11 Unilateral primary osteoarthritis, right knee; I48.0 Paroxysmal atrial fibrillation; F41.9 Anxiety disorder, unspecified; M81.0 Age-related osteoporosis without current pathological fracture; Z85.3 Personal history of malignant neoplasm of breast; Z98.49 Cataract extraction status, unspecified eye; Y92.89 Other specified places as the place of occurrence of the external cause; Z79.899 Other long term (current) drug therapy; I10 Essential (primary) hypertension; J45.909 Unspecified asthma, uncomplicated; M19.90 Unspecified osteoarthritis, unspecified site; Z90.12 Acquired absence of left breast and nipple; Z90.49 Acquired absence of other specified parts of digestive tract; W19.XXXA Unspecified fall, initial encounter
CPT/HCPCS: 36415; 72170; 72170-26; 73502-26-LT; 73502-LT; 80048; 85027; 97110-GP; 97116-GP; 97162-GP; 97165-GO; 97530-GP; 99222; 99232; 99238; 99285; A9270-GY; C1776; J0690; J2003; J2250; J2704; J3010; J7030; J7040; Q0162